=== PATIENT | female | born 1985 | race American Indian/Alaskan Native ===

== ENCOUNTER 2017-03-26 04:17 | Emergency (ER) | payer SELFPAY ==
[2017-03-26 05:38] LABS: Mean Corpuscular Hemoglobin 29 pg (28-32); Mean Corpuscular Volume 89 fl (79-97); White Blood Count 5.6 K/mm3 (4.5-11.0)
[2017-03-26 05:39] LABS: Basophils % (Auto) 1.1 % (0.0-1.8); Eosinophils % (Auto) 3.8 % (0.0-4.3); Mean Corpuscular HGB Conc 32 % (30-34); Platelet Count 223 K/mm3 (140-440); Red Cell Distribution Width 14.5 % (13.2-15.2)
[2017-03-26 07:14] LABS: Bilirubin,Urine NEG (Negative); Blood,Urine MOD (Negative); Ketones,Urine NEG (Negative); Leukocyte Esterase,Urine NEG (Negative); Mucus,Urine FEW /HPF; Nitrite,Urine NEG (Negative); Protein,Urine <15 mg/dL mg/dL (Negative); Urobilinogen,Urine < 2.0 mg/dL (<2.0)
--- NOTE | 2017-03-26 07:56 | Ultrasound Report ---
FINAL REPORT PROCEDURE: US OB TRANSVAGINAL TECHNIQUE: Real-time transvaginal sonography of the uterus, placenta, amniotic fluid, adnexa, and fetus was performed with image documentation. Measurements were obtained to determine age/size. M-mode Doppler was used to document heartbeat. CPT 30653 HISTORY: vaginal bleed, abd pn COMPARISON: No prior studies are available for comparison. FINDINGS: CRL: 3mm, which corresponds to a gestational age of: 5weeks, 6 days. Yolk Sac: Normal. Embryonic Cardiac Activity: None detected Gestational Sac: Gestational sac is irregular in configuration. There is debris in the sac. Right Ovary: There is a 12 millimeter complex cyst. Left Ovary: Normal. Estimated delivery date: 11/06/2017 IMPRESSION: 1. Intrauterine at 5 weeks 6 days 2. The gestational sac is irregular in configuration and contains debris. There is no cardiac activity. Findings suggest intrauterine demise.
--- NOTE | 2017-03-26 07:57 | Ultrasound Report ---
FINAL REPORT PROCEDURE: US OB TRANSABDOMINAL TECHNIQUE: Transabdominal sonography of the uterus, placenta, amniotic fluid, adnexa, and fetus was performed with image documentation. Measurements were obtained to determine age/size. M-mode Doppler was used to document heartbeat. HISTORY: vaginal bleed, abd pn COMPARISON: No prior studies are available for comparison. FINDINGS: CRL: 3mm, which corresponds to a gestational age of: 5weeks, 6 days. Yolk Sac: Normal. Embryonic Cardiac Activity: None detected Gestational Sac: Gestational sac is irregular in configuration. There is debris in the sac. Right Ovary: There is a 12 millimeter complex cyst. Left Ovary: Normal. Estimated delivery date: 11/06/2017 IMPRESSION: 1. Intrauterine at 5 weeks 6 days 2. The gestational sac is irregular in configuration and contains debris. There is no cardiac activity. Findings suggest intrauterine demise.
[2017-03-26] MEDS ORDERED: TYLENOL PO ONE (08:55)
--- NOTE | 2017-03-26 08:57 | Emergency Department Report ---
HPI - General Chief Complaint: Vaginal Bleeding Time Seen by Provider: 03/26/17 08:36 - HPI HPI: This is a 32-year-old Afro-Serbian female presents to the emergency department from home with complaint of moderate vaginal bleeding and contraction-like abdominal cramping pain since yesterday. The patient believes herself to be about 5 weeks as she had a last special cycle at the end of January. She did a home test that was positive and this was confirmed by a [facility] as well. With this the patient is with 1 previous . She is not taken anything for symptoms prior to presentation. She does not have any PARTS TECHNICIAN. No recent travel or sick contacts at home. She denies any fever, excessive nausea or vomiting, dysuria, vaginal discharge. ED Past Medical Hx - Past Medical History Previous Medical History?: Yes Hx Asthma: Yes - Surgical History Past Surgical History?: No - Social History Smoking Status: Never Smoker Substance Use Type: None - Medications Home Medications: Home Medications Medication Instructions Recorded Confirmed Last Taken Type Albuterol Sulfate [Proventil HFA] 1 - 2 puff IH Q4H PRN 04/14/15 04/14/15 Unknown History Ofloxacin 0.3% [Floxin Otic] 10 drops OT BID #1 bottle 04/14/15 Unknown Rx Penicillin Vk [Veetids TAB] 500 mg PO QID #40 tablet 05/15/15 Unknown Rx traMADol [Ultram 50 MG tab] 50 mg PO Q6HR PRN #30 tablet 05/15/15 Unknown Rx Amoxicillin [Trimox CAP] 500 mg PO Q8H #30 capsule 06/24/15 Unknown Rx Ibuprofen [Motrin 800 MG tab] 800 mg PO Q8HR PRN #30 tablet 08/31/15 Unknown Rx Penicillin Vk [Veetids TAB] 500 mg PO QID #40 tablet 08/31/15 Unknown Rx Chlorhexidine Mouthwash [Peridex] 15 ml MM BID #1 bottle 12/13/15 Unknown Rx Penicillin Vk [Veetids TAB] 250 mg PO QID #10 tablet 12/13/15 Unknown Rx traMADol [Ultram 50 MG tab] 50 mg PO Q6HR PRN #20 tablet 12/13/15 Unknown Rx Vit No.130/Iron/FA 1 each PO QDAY #30 tablet 03/26/17 Unknown Rx [ Tablet] ED Review of Systems ROS: Stated complaint: 12WKS PREG/ABD PAIN/BLEEDING Other details as noted in HPI Comment: All other systems reviewed and negative Constitutional: denies: chills, fever Eyes: denies: eye pain, eye discharge, vision change ENT: denies: ear pain, throat pain Respiratory: denies: cough, shortness of breath, wheezing Cardiovascular: denies: chest pain, palpitations Gastrointestinal: abdominal pain (cramping pain). denies: nausea Genitourinary: other (vaginal bleeding). denies: dysuria, discharge Musculoskeletal: denies: back pain, joint swelling, arthralgia Skin: denies: rash, lesions Neurological: denies: headache, weakness, paresthesias Physical Exam - Physical Exam Vital Signs: Vital Signs 03/26/17 03/26/17 04:18 07:57 Temperature 98.4 F 98.2 F Pulse Rate 53 L 50 L Respiratory 20 18 Rate Blood Pressure 139/100 Blood Pressure 140/90 [Right] O2 Sat by Pulse 100 100 Oximetry Physical Exam: GENERAL: The patient is well-developed well-nourished. HEENT: Normocephalic. Atraumatic. Extraocular motions are intact. Patient has moist mucous membranes. Pupils equal reactive to light bilaterally. NECK: Supple. Trachea is midline. CHEST/LUNGS: Clear to auscultation. There is no respiratory distress noted. HEART/CARDIOVASCULAR: Regular. There is no tachycardia. There is no gallop rub or murmur. ABDOMEN: Abdomen is soft. No tenderness to palpation. No guarding rebound tenderness. Patient has normal bowel sounds. There is no abdominal distention. SKIN: There is no rash. There is no edema. There is no diaphoresis. NEURO: The patient is awake, alert, and oriented. The patient is cooperative. The patient has no focal neurologic deficits. The patient has normal speech. MUSCULOSKELETAL: There is no tenderness or deformity. There is no limitation range of motion. There is no evidence of acute injury. ED Course Vital Signs 03/26/17 03/26/17 04:18 07:57 Temperature 98.4 F 98.2 F Pulse Rate 53 L 50 L Respiratory 20 18 Rate Blood Pressure 139/100 Blood Pressure 140/90 [Right] O2 Sat by Pulse 100 100 Oximetry - Consultations Consultation #1: I spoke with Monie, the radio board operator for [facility] service, and we discussed the patient's presentation, vaginal bleeding, ultrasound concerning for demise. She agrees that the best course of action is to have the patient repeat the hormone level and possibly the ultrasound and 3-4 days. She does not recommend a pelvic examination at this time. She recommends pelvic rest and miscarriage precautions. 03/26/17 08:57 ED Medical Decision Making - Lab Data Result diagrams: 03/26/17 04:48 - Radiology Data Radiology results: report reviewed Transvaginal/OB ultrasound shows an intrauterine at 5 weeks and 6 days. The gestational sac is irregular in configuration and contains debris. There is no cardiac activity. Findings suggest intrauterine demise. - Medical Decision Making 32-year-old female presents the emergency department with about 24 hours of vaginal bleeding and abdominal cramping pains. Beta hCG is about 19,000. Transvaginal ultrasound shows concerns for intrauterine demise. However we cannot definitively say that this is in fact demise and/or miscarriage. Patient will be started on vitamins. Spoke with the my PARTS TECHNICIAN radio board operator who suggests repeat hormone level an ultrasound in a few days. If the hormone level is increasing and the ultrasound shows progression, this may be an atypical early viable intrauterine . If the hormone level is decreasing and the ultrasound shows regression, then this is most likely a miscarriage and/or demise. Spoke with the patient about pelvic precautions and miscarriage precautions. She will return to the ER with any worsening of her bleeding, abdominal pain or any acute distress. Patient understands and agrees the plan. - Differential Diagnosis , threatened miscarriage, spontaneous miscarriage, fibroids Critical Care Time: No Critical care attestation.: If time is entered above; I have spent that time in minutes in the direct care of this critically ill patient, excluding procedure time. ED Disposition Clinical Impression: Threatened miscarriage Disposition: DISCHARGED TO HOME OR SELFCARE Is pt being admited?: No Condition: Stable Instructions: Threatened Miscarriage (ED) Additional Instructions: Please follow-up with any of the PARTS TECHNICIAN services in 3-4 days for a repeat hormone level and possibly a repeat ultrasound. If the hormone level is increasing and the ultrasound shows progression of the , then this may just be an early intrauterine . If the hormone level is decreasing and the ultrasound shows regression, then this is a threatened miscarriage. You should return to the emergency department sooner with any worsening of the vaginal bleeding or intractable abdominal discomfort or any acute distress. You need to practice pelvic rest until cleared by an PARTS TECHNICIAN. This means no sexual intercourse and nothing should be inserted into the vagina. Try to limit any exertion. Prescriptions: Vit No.130/Iron/FA [ Tablet] 1 each PO QDAY #30 tablet Referrals: [facility] [Provider Group] - 3-5 Days [facility] [Provider Group] - 3-5 Days [facility] [Provider Group] - 3-5 Days Time of Disposition: 09:02
[2017-03-26 09:35] VITALS: BP 138/84
== END 2017-03-26 09:36 | disposition home or self-care (01) ==
LOC: ED 04:17
DX: O20.0 Threatened abortion (principal); O99.511 Diseases of the respiratory system complicating pregnancy, first trimester; Z3A.01 Less than 8 weeks gestation of pregnancy
CPT/HCPCS: 36415; 76801; 76817; 81001; 84702; 85025; 86850; 86900; 86901

== ENCOUNTER 2017-03-29 16:01 | Emergency (ER) | payer SELFPAY ==
[2017-03-29 17:27] LABS: Basophils % (Auto) 1.3 % (0.0-1.8); Eosinophils % (Auto) 2.7 % (0.0-4.3); Hemoglobin 10.8 gm/dl (10.1-14.3); Mean Corpuscular HGB Conc 32 % (30-34); Mean Corpuscular Hemoglobin 28 pg (28-32); Mean Corpuscular Volume 89 fl (79-97); Platelet Count 236 K/mm3 (140-440); Red Blood Count 3.84 M/mm3 (3.65-5.03); Red Cell Distribution Width 15.3 % (13.2-15.2); White Blood Count 3.8 K/mm3 (4.5-11.0)
[2017-03-29 17:44] LABS: Bilirubin,Urine NEG (Negative); Blood,Urine MOD (Negative); Ketones,Urine NEG (Negative); Leukocyte Esterase,Urine NEG (Negative); Mucus,Urine 3+ /HPF; Nitrite,Urine NEG (Negative); Protein,Urine <15 mg/dL mg/dL (Negative)
[2017-03-30 06:07] VITALS: BP 128/85
[2017-03-30] MEDS ORDERED: PERCOCET 5/325 PO ONE (06:19)
--- NOTE | 2017-03-30 06:22 | Emergency Department Report ---
HPI - General Chief Complaint: Vaginal Bleeding Time Seen by Provider: 03/30/17 06:07 - HPI HPI: This is a 32-year-old Afro-Lebanese female presents to the emergency department with complaint of continued and worsening vaginal bleeding and pelvic cramping/ pain. The patient was here last , 4-5 days ago, was found to be with concern for demise based on the irregular appearance of the ultrasound. She is currently . The patient was given instructions to follow-up with a TOP EDGE BEVELER but return to the ER if symptoms worsened or she could not get in to see an TOP EDGE BEVELER in a reasonable amount of time. She says that the bleeding is increased includes clots but she has not seen any obvious tissue. She has been using Tylenol and vitamins without any relief. She says she was able to make an appointment for this coming Thursday for [facility] but she could not wait that long. ED Past Medical Hx - Past Medical History Previous Medical History?: Yes Hx Asthma: Yes - Surgical History Past Surgical History?: No - Social History Smoking Status: Never Smoker Substance Use Type: None - Medications Home Medications: Home Medications Medication Instructions Recorded Confirmed Last Taken Type Albuterol Sulfate [Proventil HFA] 1 - 2 puff IH Q4H PRN 04/14/15 04/14/15 History Ibuprofen [Motrin 800 MG tab] 800 mg PO Q8HR PRN #30 tablet 08/31/15 03/29/17 Rx Vit No.130/Iron/FA 1 each PO QDAY #30 tablet 03/26/17 03/29/17 Rx [ Tablet] HYDROcodone/APAP 5-325 [[place] 1 each PO Q6HR PRN #10 tablet 03/30/17 Unknown Rx 5/325] ED Review of Systems ROS: Stated complaint: 6 WKS W/BLEEDING CRAMPS CLOTS Other details as noted in HPI Comment: All other systems reviewed and negative Constitutional: denies: chills, fever Eyes: denies: eye pain, eye discharge, vision change ENT: denies: ear pain, throat pain Respiratory: denies: cough, shortness of breath, wheezing Cardiovascular: denies: chest pain, palpitations Gastrointestinal: abdominal pain. denies: nausea, vomiting Genitourinary: other (vaginal bleeding). denies: urgency, dysuria, discharge Musculoskeletal: denies: back pain, joint swelling, arthralgia Skin: denies: rash, lesions Neurological: denies: headache, weakness, paresthesias Physical Exam - Physical Exam Vital Signs: Vital Signs 03/29/17 03/30/17 03/30/17 16:46 05:41 05:49 Temperature 98.9 F Pulse Rate 85 63 63 Respiratory 16 13 13 Rate Blood Pressure 133/88 Blood Pressure 135/89 [Right] O2 Sat by Pulse 100 100 100 Oximetry 03/30/17 03/30/17 05:51 06:00 Temperature Pulse Rate 67 64 Respiratory 11 L 17 Rate Blood Pressure 131/89 128/85 Blood Pressure [Right] O2 Sat by Pulse 100 100 Oximetry Physical Exam: GENERAL: The patient is well-developed well-nourished. HEENT: Normocephalic. Atraumatic. Extraocular motions are intact. Patient has moist mucous membranes. Pupils equal reactive to light bilaterally. NECK: Supple. Trachea is midline. CHEST/LUNGS: Clear to auscultation. There is no respiratory distress noted. HEART/CARDIOVASCULAR: Regular. There is no tachycardia. There is no gallop rub or murmur. ABDOMEN: Abdomen is soft, nontender. Patient has normal bowel sounds. There is no abdominal distention. SKIN: There is no rash. There is no edema. There is no diaphoresis. NEURO: The patient is awake, alert, and oriented. The patient is cooperative. The patient has no focal neurologic deficits. The patient has normal speech. MUSCULOSKELETAL: There is no tenderness or deformity. There is no limitation range of motion. There is no evidence of acute injury. : There is a moderate amount of frothy maroon blood seen in the vaginal vault. Cervical os appears closed. ED Course Vital Signs 03/29/17 03/30/17 03/30/17 16:46 05:41 05:49 Temperature 98.9 F Pulse Rate 85 63 63 Respiratory 16 13 13 Rate Blood Pressure 133/88 Blood Pressure 135/89 [Right] O2 Sat by Pulse 100 100 100 Oximetry 03/30/17 03/30/17 05:51 06:00 Temperature Pulse Rate 67 64 Respiratory 11 L 17 Rate Blood Pressure 131/89 128/85 Blood Pressure [Right] O2 Sat by Pulse 100 100 Oximetry - Consultations Consultation #1: I spoke with the cone treater at [facility] BEVEL[facility], Veronica, who says that the patient's pain should be controlled but then they are happy to move up her appointment and see her either today or tomorrow for possible Cytotec and further evaluation of her miscarriage and/or demise. 03/30/17 07:25 ED Medical Decision Making - Lab Data Result diagrams: 03/29/17 16:56 - Medical Decision Making 32-year-old female presents to the emergency department as a follow-up from last week in which there was suspicion for demise. However at that time she had a very strong beta hCG of about 20,000 and it was only 1 snapshot of what was going on and could not definitively be diagnosed. Since the symptoms worsen she came in to be seen today and was found to have a beta-hCG of about 6500. This does appear consistent with demise and impending or partial miscarriage. Pelvic exam was done and there was no visible products of retained conception but there was some bleeding seen. Spoke to the TOP EDGE BEVELER service who recommends pain control and will move up the patient's appointment from Thursday to either today or tomorrow for further evaluation. Patient was given something for discomfort and is feeling improved. Vital signs stable throughout her ED course. Patient understands and agrees to plan. - Differential Diagnosis , threatened miscarriage, spontaneous miscarriage, fibroids Critical Care Time: No Critical care attestation.: If time is entered above; I have spent that time in minutes in the direct care of this critically ill patient, excluding procedure time. ED Disposition Clinical Impression: demise Disposition: DISCHARGED TO HOME OR SELFCARE Is pt being admited?: No Condition: Stable Instructions: Intrauterine Demise (ED) Additional Instructions: Please call [facility] today to get her appointment moved up to either today or tomorrow. Return to the emergency department with any acute distress. You've been prescribed a medication that is sedating. Therefore this medication cannot be mixed with alcohol, or taken prior to driving, working, or being responsible for children. Prescriptions: HYDROcodone/APAP 5-325 [[place] 5/325] 1 each PO Q6HR PRN #10 tablet PRN Reason: Pain Referrals: [facility] [Provider Group] - 3-5 Days Time of Disposition: 07:28
== END 2017-03-30 07:50 | disposition home or self-care (01) ==
LOC: ED 16:01
DX: O36.4XX0 Maternal care for intrauterine death, not applicable or unspecified (principal); J45.909 Unspecified asthma, uncomplicated
CPT/HCPCS: 36415; 81001; 84702; 85025; 86850; 86900; 86901

== ENCOUNTER 2017-12-07 21:51 | Emergency (ER) | payer MEDICAID ==
[2017-12-07 22:35] VITALS: BP 126/78
[2017-12-08] MEDS ORDERED: TORADOL IM ONE (02:45)
--- NOTE | 2017-12-08 02:52 | Emergency Department Report ---
ED ENT HPI - General Chief complaint: Dental/Oral Stated complaint: TOOTH PAIN Time Seen by Provider: 12/08/17 02:22 Source: patient Mode of arrival: Ambulatory Limitations: No Limitations - History of Present Illness Initial comments: This is a 32-year-old female nontoxic, well nourished in appearance, no acute signs of distress presents to the ED with c/o of toothache radiating to her left ear. Patient finished she had a business appointment 2 weeks ago and was told that she needs a root canal and cleaning but the patient stated due to insurance she reschedule that for December 26. Patient denies any facial swelling, decreased hearing, mastoid tenderness, ear canal discharge, fever, chills, nausea, vomiting, chest pain, shortness of breath, numbness or tingling. Patient denies any drug allergies. Past medical history includes asthma. MD complaint: tooth pain -: week(s) (3) Location: tooth # (19) 1 - toothache Severity: mild Severity scale (0 -10): 8 Quality: aching Consistency: constant Improves with: none Worsens with: none Context- Dental: history of dental caries, poor dental care Associated Symptoms: gum swelling, toothache. denies: fever, cough, pain with swallowing, sore throat, tinnitus, hearing loss, discharge from ear, rhinorrhea - Related Data Home Medications Medication Instructions Recorded Confirmed Last Taken Albuterol Sulfate [Proventil HFA] 1 - 2 puff IH Q4H PRN 04/14/15 04/14/15 Previous Rx's Medication Instructions Recorded Last Taken Type Ibuprofen [Motrin 800 MG tab] 800 mg PO Q8HR PRN #30 tablet 08/31/15 03/29/17 Rx Vit No.130/Iron/Folic 1 each PO QDAY #30 tablet 03/26/17 03/29/17 Rx [ Tablet] HYDROcodone/APAP 5-325 [[place] 1 each PO Q6HR PRN #10 tablet 03/30/17 Unknown Rx 5/325] Amoxicillin/K Clav Tab [Augmentin 1 tab PO Q12HR #20 tab 12/08/17 Unknown Rx 875 mg] Chlorhexidine Mouthwash [Peridex] 15 ml MM BID #1 bottle 12/08/17 Unknown Rx traMADol [Ultram] 50 mg PO Q6HR PRN #12 tablet 12/08/17 Unknown Rx Allergies Allergy/AdvReac Type Severity Reaction Status Date / Time No Known Allergies Allergy Verified 12/13/15 14:27 ED Dental HPI - General Chief complaint: Dental/Oral Stated complaint: TOOTH PAIN Time Seen by Provider: 12/08/17 02:22 Source: patient Mode of arrival: Ambulatory Limitations: No Limitations - Related Data Home Medications Medication Instructions Recorded Confirmed Last Taken Albuterol Sulfate [Proventil HFA] 1 - 2 puff IH Q4H PRN 04/14/15 04/14/15 Previous Rx's Medication Instructions Recorded Last Taken Type Ibuprofen [Motrin 800 MG tab] 800 mg PO Q8HR PRN #30 tablet 08/31/15 03/29/17 Rx Vit No.130/Iron/Folic 1 each PO QDAY #30 tablet 03/26/17 03/29/17 Rx [ Tablet] HYDROcodone/APAP 5-325 [[place] 1 each PO Q6HR PRN #10 tablet 03/30/17 Unknown Rx 5/325] Amoxicillin/K Clav Tab [Augmentin 1 tab PO Q12HR #20 tab 12/08/17 Unknown Rx 875 mg] Chlorhexidine Mouthwash [Peridex] 15 ml MM BID #1 bottle 12/08/17 Unknown Rx traMADol [Ultram] 50 mg PO Q6HR PRN #12 tablet 12/08/17 Unknown Rx Allergies Allergy/AdvReac Type Severity Reaction Status Date / Time No Known Allergies Allergy Verified 12/13/15 14:27 ED Review of Systems ROS: Stated complaint: TOOTH PAIN Other details as noted in HPI Constitutional: denies: chills, fever Eyes: denies: eye pain, eye discharge, vision change ENT: dental pain. denies: ear pain, throat pain Respiratory: denies: cough, shortness of breath, wheezing Cardiovascular: denies: chest pain, palpitations Endocrine: no symptoms reported Gastrointestinal: denies: abdominal pain, nausea, diarrhea Genitourinary: denies: urgency, dysuria, discharge Musculoskeletal: denies: back pain, joint swelling, arthralgia Skin: denies: rash, lesions Neurological: denies: headache, weakness, paresthesias Psychiatric: denies: anxiety, depression Hematological/Lymphatic: denies: easy bleeding, easy bruising ED Past Medical Hx - Past Medical History Hx Asthma: Yes - Surgical History Additional Surgical History: - Social History Smoking Status: Current Every Day Smoker Substance Use Type: None - Medications Home Medications: Home Medications Medication Instructions Recorded Confirmed Last Taken Type Albuterol Sulfate [Proventil HFA] 1 - 2 puff IH Q4H PRN 04/14/15 04/14/15 History Ibuprofen [Motrin 800 MG tab] 800 mg PO Q8HR PRN #30 tablet 08/31/15 03/29/17 Rx Vit No.130/Iron/Folic 1 each PO QDAY #30 tablet 03/26/17 03/29/17 Rx [ Tablet] HYDROcodone/APAP 5-325 [[place] 1 each PO Q6HR PRN #10 tablet 03/30/17 Unknown Rx 5/325] Amoxicillin/K Clav Tab [Augmentin 1 tab PO Q12HR #20 tab 12/08/17 Unknown Rx 875 mg] Chlorhexidine Mouthwash [Peridex] 15 ml MM BID #1 bottle 12/08/17 Unknown Rx traMADol [Ultram] 50 mg PO Q6HR PRN #12 tablet 12/08/17 Unknown Rx ED Physical Exam - General Limitations: No Limitations General appearance: alert, in no apparent distress - Head Head exam: Present: atraumatic, normocephalic - Eye Eye exam: Present: normal appearance - ENT ENT exam: Present: mucous membranes moist, TM's normal bilaterally, normal external ear exam - Expanded ENT Exam Expanded Ear exam: Present: normal external inspection Mouth exam: Present: normal external inspection, tongue normal. Absent: drooling, trismus, muffled voice, tongue elevation, laceration Teeth exam: Present: dental caries, fractured tooth # (19), dental tenderness # (19), gingival enlargement, other (No facial swelling. ) 1 - Fractured, Dental Tenderness Throat exam: Positive: normal inspection, other (Uvula midline. No abscess or swelling noted. ). Negative: tonsillar erythema, tonsillomegaly, tonsillar exudate, R peritonsillar mass, L peritonsillar mass - Neck Neck exam: Present: normal inspection, full ROM. Absent: tenderness, meningismus, lymphadenopathy, thyromegaly - Respiratory Respiratory exam: Present: normal lung sounds bilaterally. Absent: respiratory distress - Cardiovascular Cardiovascular Exam: Present: regular rate, normal rhythm. Absent: systolic murmur, diastolic murmur, rubs, gallop - GI/Abdominal GI/Abdominal exam: Present: soft, normal bowel sounds - Extremities Exam Extremities exam: Present: normal inspection - Back Exam Back exam: Present: normal inspection - Neurological Exam Neurological exam: Present: alert, oriented X3 - Psychiatric Psychiatric exam: Present: normal affect, normal mood - Skin Skin exam: Present: warm, dry, intact, normal color. Absent: rash ED Course Vital Signs 12/07/17 22:30 Temperature 99.1 F Pulse Rate 72 Respiratory 16 Rate Blood Pressure 126/78 O2 Sat by Pulse 100 Oximetry - Reevaluation(s) Reevaluation #1: 12/08/17 02:52 Patient is speaking in full sentences with no signs of distress noted. Critical care attestation.: If time is entered above; I have spent that time in minutes in the direct care of this critically ill patient, excluding procedure time. ED Disposition Clinical Impression: Dental caries, Toothache, Gingivitis Disposition: DC-01 TO HOME OR SELFCARE Is pt being admited?: No Does the pt Need Aspirin: No Condition: Stable Instructions: Dental Caries (ED), Gingivitis (ED), Tramadol (By mouth), Amoxicillin/Clavulanate Potassium (By mouth) Additional Instructions: Follow-up with a dentist in 3-5 days or if symptoms worsen and continue return to emergency room as soon as possible. Do not operate any machinery while taking Ultram due to drowsiness. Prescriptions: Amoxicillin/K Clav Tab [Augmentin 875 mg] 1 tab PO Q12HR #20 tab Chlorhexidine Mouthwash [Peridex] 15 ml MM BID #1 bottle traMADol [Ultram] 50 mg PO Q6HR PRN #12 tablet PRN Reason: Pain Referrals: PRIMARY CARE,MD [Primary Care Provider] - 3-5 Days GOODJOIN,EDIE B, MD [Staff Physician] - 3-5 Days [facility] [Outside] - 3-5 Days Forms: Work/School Release Form(ED)
== END 2017-12-08 03:05 | disposition home or self-care (01) ==
LOC: ED 21:51
DX: K02.9 Dental caries, unspecified (principal); K05.10 Chronic gingivitis, plaque induced; J45.909 Unspecified asthma, uncomplicated; F17.200 Nicotine dependence, unspecified, uncomplicated
CPT/HCPCS: 96372; 99282; J1885

== ENCOUNTER 2018-05-24 16:37 | Outpatient (CLI) | payer MEDICAID ==
[2018-05-24] MEDS ORDERED: LACTATED RINGERS 500 ML IV ONE (16:43)
[2018-05-24 16:57] VITALS: BP 107/55
== END 2018-05-24 17:35 | disposition home or self-care (01) ==
LOC: TRG 16:37
PROVIDERS: ATTEND Obstetrics & Gynecology
DX: O47.02 False labor before 37 completed weeks of gestation, second trimester (principal); Z3A.27 27 weeks gestation of pregnancy
CPT/HCPCS: 59025

== ENCOUNTER 2018-07-29 18:44 | Inpatient (IN) | payer MEDICAID ==
--- NOTE | 2018-07-29 19:06 | History and Physical Report ---
History of Present Illness Date of examination: 07/29/18 Date of admission: 07/29/18 18:44 Chief [place] [facility] [place]oh[place] History of present illness: 33yo at 36 5/7wks GIDEON 08/21/18 presents for repeat csection due to oligohydramnios (4.85). She reports good movement, no loss of fluid or vaginal bleeding. She was seen by APADr. Kingsley today and delivery was recommended. She is a late to care patient at 26 weeks gestation. Her has been complicated by Anemia (Hgb 8.8 05/19/2018) for which she is taking iron supplements, trichomoniasis with treatment and positive test of cure, GBS positive, HSV2 and rubella non-immune. Her last meal was at 1230pm. 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 - Obstetrical History Expected Date of Delivery: 08/21/18 Actual Gestation: 36 Week(s) 5 Day(s) : 8 Para: 6 Hx # Term Pregnancies: 5 Number of Pregnancies: 1 Number of Living Children: 6 Medications and Allergies Allergies Allergy/AdvReac Type Severity Reaction Status Date / Time No Known Allergies Allergy Verified 12/13/15 14:27 Home Medications Medication Instructions Recorded Confirmed Last Taken Type Albuterol Sulfate [Proventil HFA] 1 - 2 puff IH Q4H PRN 04/14/15 05/24/18 History Vit No.130/Iron/Folic 1 each PO QDAY #30 tablet 03/26/17 05/24/18 1 Day Ago Rx [ Tablet] ~05/23/18 - Obstetrical FHR: auscultation normal Results All other labs normal. Assessment and Plan - Patient Problems (1) 36 weeks gestation of Current Visit: Yes Status: Acute Plan to address problem: 1. Routine labs. Check for anemia, if severe will transfuse. 2. IVF 3. SCDs for DVT prophylaxis. 4. Ancef for infection prophylaxis. 5. Risks including but not limited to bleeding, infection, injury to surrounding organs/mother and or , need for blood transfusion, need for hysterectomy or risk of OR, CVA were discussed and informed consent signed. (2) Oligohydramnios Current Visit: Yes Status: Acute Plan to address problem: Indication for delivery (3) Previous section Current Visit: Yes Status: Acute (4) Trichomoniasis Current Visit: Yes Status: Acute Plan to address problem: Treat with Flagyl IV (5) HSV-2 seropositive Current Visit: Yes Status: Acute (6) Positive GBS test Current Visit: Yes Status: Acute
[2018-07-29] MEDS ORDERED: BICITRA PO ONE (19:14)
[2018-07-29] MEDS ORDERED: PEPCID IV ONE (19:14)
[2018-07-29] MEDS ORDERED: REGLAN IV ONE (19:14)
[2018-07-29] MEDS ORDERED: PITOCin/NS 20 UNIT/1000ML DRIP 20 UNITS/1,000 ML BAG IV SCH (20:00)
[2018-07-29] MEDS ORDERED: FLAGYL 500 MG/100 ML 500 MG/100 ML BAG IV ONE (20:00)
[2018-07-29] MEDS: LACTATED RINGERS 1,000 ML IV SCH ×2 (20:00→20:30)
[2018-07-29 20:36] LABS: Basophils % (Auto) 0.4 % (0.0-1.8); Eosinophils # (Auto) 0.1 K/mm3 (0.0-0.4); Eosinophils % (Auto) 1.8 % (0.0-4.3); Hematocrit 31.2 % (30.3-42.9); Hemoglobin 10.1 gm/dl (10.1-14.3); Lymphocytes # (Auto) 1.4 K/mm3 (1.2-5.4); Lymphocytes % (Auto) 21.8 % (13.4-35.0); Mean Corpuscular HGB Conc 33 % (30-34); Mean Corpuscular Hemoglobin 29 pg (28-32); Mean Corpuscular Volume 89 fl (79-97); Monocytes # (Auto) 0.7 K/mm3 (0.0-0.8); Monocytes % (Auto) 10.5 % (0.0-7.3); Platelet Count 221 K/mm3 (140-440); Red Cell Distribution Width 17.9 % (13.2-15.2)
[2018-07-29] MEDS ORDERED: ANCEF/STERILE WATER 2 GM/20 ML 2 GM/20 ML SYRINGE IV NR (21:00)
[2018-07-29] MEDS ORDERED: MORPHINE ONE (21:37)
[2018-07-29] MEDS ORDERED: WATER FOR IRRIG STERILE IR ONE (21:40)
[2018-07-29] MEDS ORDERED: NACL 0.9% IR ONE (21:40)
[2018-07-29] MEDS ORDERED: XYLOCAINE MPF 2% ONE ×5 (22:22)
[2018-07-29] MEDS ORDERED: TORADOL ONE (22:22)
[2018-07-29] MEDS ORDERED: SODIUM CHLORIDE FLUSH SYRINGE 10 ML IV NR (23:45)
--- NOTE | 2018-07-29 23:48 | Anesthesia Consultation ---
Anesthesia Consult and Med Hx Date of service: 07/29/18 - Airway Anesthetic Teeth Evaluation: Good ROM Head & Neck: Adequate Mental/Hyoid Distance: Adequate Mallampati Class: Class II Intubation Access Assessment: Good - Pulmonary Exam CTA: Yes - Cardiac Exam Cardiac Exam: No Murmur - Pre-Operative Health Status ASA Pre-Surgery Classification: ASA2 Proposed Anesthetic Plan: Epidural - Pulmonary Hx Asthma: Yes (albuteral prn) - Cardiovascular System Hx Hypertension: No - Central Nervous System Hx Seizures: No Hx Psychiatric Problems: No - Endocrine Hx Renal Disease: No Hx Hypothyroidism: No Hx Hyperthyroidism: No - Hematic Hx Anemia: Yes Hx Sickle Cell Disease: No - Other Systems Hx Alcohol Use: No
[2018-07-29] MEDS ORDERED: NARCAN 0.4 MG/1 ML IV PRN (23:49)
[2018-07-29] MEDS ORDERED: ZOFRAN IV PRN (23:49)
[2018-07-29] MEDS ORDERED: PHENERGAN PO PRN (23:49)
[2018-07-29] MEDS ORDERED: DILAUDID IV PRN (23:49)
[2018-07-29] MEDS ORDERED: PHENERGAN PR PRN (23:49)
--- NOTE | 2018-07-29 23:49 | Post Anesthesia Evaluation ---
- Post Anesthesia Evaluation Patient Participated: Yes Airway Patent: Yes Stable Respiratory Function: Yes Nausea/Vomiting: No Temp > 96.8F: Yes Pain Manageable: Yes Adequeate Hydration: Yes Anesthesia Complications: No
--- NOTE | 2018-07-30 00:23 | Operative Report ---
Operative Report Operative Report: PREOP Diagnosis 1. 36 5/7 weeks gestation 2. Previous section 3. Oligohydramnois Postop Diagnosis 1. 36 5/7 weeks gestation 2. Previous section 3. Oligohydramnois Procedure: Repeat low-transverse section Findings 1. Viable male infant in the vertex position, weighing 5lb 1 oz, 2310g APGARS 8 at 1 min, 9 at 5 min 2. Normal uterus bilateral ovaries and tubes Surgeon 1. Evie Brown MD Anesthesia: 1. Epidural I/O: EBL: 900ml UOP: 150ml IVF 2000ml LR Specimens removed: 1. Placenta - sent to pathology Complications: none Disposition: Patient taken to recovery room in stable condition INDICATIONS: The patient is a 33yo at 36 5/7weeks that [place] [facility] [place]oh[place]. heart tones were confirmed in the OR . The patient was consented and the risks including but not limited to bleeding, infections, injury to surrounding organs, potential injury to mother/ were discussed. All questions were answered and informed consent signed. PROCEDURE: The patient was taken to the OR in stable condition. Adequate anesthesia was achieved with epidural anesthesia. A sharma catheter was placed. She wore SCDs for DVT prophylaxis. And received Ancef for infection prophylaxis. The patient was prepped and draped in the usual fashion and an additional time out was done. A Pfannestiel incision was made over the previous uterine scar. The fascia was incised and the incision extended laterally. The superior and inferior aspect of the rectus muscle was dissected off of the fascia. Entry into the peritoneum was achieved. The incision was extended caudal and cranially. A bladder blade was placed. A low-transverse incision made made in the uterus and extended laterally. The head was brought to the hysterotomy and mouth bulb suctioned. The body was delivered. 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 Cord blood and cord gasses were collected. The placenta was delivered intact. 20 units of IV Pitocin were added to LR fluids. The uterus was cleaned of all clots. The uterus was repaired with 0-Vicryl in a running, locked stitche x 2 and an imbricating layer of 2-0 Vicryl was used. Tisseal fibrin sealant was applied to the hysterotomy. The rectus muscle was re-approximated with 2- 0Vicryl. Fascia was closed with 0 Vicryl. Subcutaneous layer reapproximated with 2-0 Vicryl. Skin closed with 4-0 Vicryl. The patient tolerated the procedure well. All counts were correct x 3. Urine was noted to be clear at close of case. I was present and scrubbed for the entire procedure. The patient was taken to the recovery room in stable condition.
[2018-07-30] MEDS ORDERED: DILAUDID IV ONE (02:54)
[2018-07-30] MEDS ORDERED: FLAGYL 500 MG/100 ML 500 MG/100 ML BAG IV ONE (03:00)
[2018-07-30] MEDS ORDERED: MILK OF MAGNESIA PO PRN (03:27)
[2018-07-30] MEDS ORDERED: NARCAN 0.4 MG/1 ML IV PRN (03:27)
[2018-07-30] MEDS ORDERED: PERCOCET 5/325 PO PRN (03:27)
[2018-07-30] MEDS ORDERED: TUCKS PAD TP PRN (03:27)
[2018-07-30] MEDS ORDERED: TYLENOL PO PRN (03:27)
[2018-07-30] MEDS ORDERED: LANSINOH TP PRN (03:27)
[2018-07-30] MEDS: MORPHINE IV PRN ×2 (06:51→20:18)
[2018-07-30] MEDS ORDERED: TORADOL IV PRN (08:30)
[2018-07-30] MEDS ORDERED: FLAGYL PO ONE (10:00)
--- NOTE | 2018-07-30 10:10 | Progress Note ---
Assessment and Plan (1) Repeat Section Current Visit: Yes Status: Acute Plan to address problem: 1. Routine Post-op/ care 2. Anemia: asymptomatic. H/H pending 3. Stable 4. Pain well controlled 5. Abdominal Binder ordered 6. Encouraged ambulation in room today 7. Anticipate discharge in 24-48 hrs (2) Oligohydramnios Current Visit: Yes Status: Acute Plan to address problem: Indication for delivery (3) Previous section Current Visit: Yes Status: Acute (4) Trichomoniasis Current Visit: Yes Status: Acute Plan to address problem: Treated with Flagyl IV (5) HSV-2 seropositive Current Visit: Yes Status: Acute (6) Positive GBS test Current Visit: Yes Status: Acute Subjective - Subjective Date of service: 07/30/18 Principal diagnosis: POD#1 s/p Repeat c/s Patient reports: appetite normal, voiding normally, pain well controlled, flatus , ambulating normally, no bowel movement [place]: doing well, bottle feeding Objective - Vital Signs Latest vital signs: Vital Signs Temp Pulse Resp BP BP Pulse Ox 07/30/18 06:51 07/30/18 05:18 98.2 F 65 20 120/79 100 07/30/18 03:33 18 07/30/18 03:03 20 07/30/18 02:25 98.0 F 60 20 121/76 07/30/18 02:20 98.3 F 86 120/70 07/30/18 00:55 98.1 F 58 L 18 129/78 100 07/30/18 00:40 56 L 20 125/78 07/30/18 00:25 58 L 19 129/77 100 07/30/18 00:10 57 L 16 125/80 100 07/29/18 23:55 58 L 15 124/74 100 07/29/18 23:50 55 L 14 119/69 100 07/29/18 23:46 97.7 F 62 11 L 120/77 100 07/29/18 23:21 84 120/83 07/29/18 19:40 98.1 F 63 18 116/60 116/60 Intake and Output 07/29/18 07/30/18 07/30/18 23:59 07:59 15:59 Intake Total 3000 Output Total 300 Balance 2700 Intake: IV 3000 Lactated Ringers 1,000 ml 1000 @ 2250 mls/hr IV PREOP [facility] Rx#:[id number] Output: Urine 300 Uretheral (Cruz) 150 Other: Weight 85.275 kg Estimated Blood Loss 900 - Exam Breasts: Present: normal Cardiovascular: Present: Regular rate, Normal S1, Normal S2, No murmurs Lungs: Present: Clear to auscultation, Normal air movement Abdomen: Present: normal appearance, soft, tenderness (as expected post-op), normal bowel sounds. Absent: distention Vulva: both: normal Uterus: Present: firm, fundal height at umbilicus Extremities: Present: normal Deep Tendon Reflex Grade: Normal +2 Incision: Present: normal, dry, intact, dressed (pressure dressing intact. CDI no drainage) - Labs Labs: Abnormal lab results 07/29/18 Range/Units 20:04 RBC 3.50 L (3.65-5.03) M/mm3 RDW 17.9 H (13.2-15.2) % [place] % (Auto) 10.5 H (0.0-7.3) %
[2018-07-30] MEDS: MYLICON PO PRN ×2 (11:00→21:43)
[2018-07-30] MEDS: PERCOCET 5/325 PO PRN ×2 (15:45→21:43)
[2018-07-30 16:21] LABS: Hematocrit 29.3 % (30.3-42.9); Hemoglobin 9.6 gm/dl (10.1-14.3)
[2018-07-30] MEDS: MOTRIN PO PRN (19:20)
[2018-07-31] MEDS: MOTRIN PO PRN ×4 (03:49→23:04)
[2018-07-31] MEDS: PERCOCET 5/325 PO PRN ×4 (03:50→23:05)
[2018-07-31] MEDS ORDERED: BOOSTRIX IM ONE (06:00)
[2018-07-31] MEDS ORDERED: M-M-R II VACCINE SUB-Q ONE (06:00)
--- NOTE | 2018-07-31 11:17 | Progress Note ---
Assessment and Plan A: /postop day 1 S/P repeat low transverse section. Anemia. P: Iron supplementation; stool softeners. Encouraged ambulation. Subjective - Subjective Date of service: 07/31/18 Principal diagnosis: /postop day 1 S/P repeat section Interval history: /postop day 1 S/P repeat section. Patient is doing well. Patient reports a small amount of lochia. Patient denies clots. She is voiding without difficulty, passing gas, ambulating well, tolerating a regular diet without nausea or vomiting, and had BM today. Patient denies headache, cough, chest pain, shortness of breath, abdominal pain , leg pain, heavy vaginal bleeding, or swelling. Patient reports: appetite normal, voiding normally, pain well controlled, flatus , bowel movement, ambulating normally [place]: doing well Objective - Vital Signs Latest vital signs: Vital Signs Temp Pulse Resp BP BP Pulse Ox 07/31/18 10:03 20 07/31/18 08:55 98.7 F 69 20 112/82 100 07/31/18 08:10 98.2 F 64 20 108/57 07/31/18 04:50 18 07/31/18 04:49 18 07/31/18 03:50 18 07/31/18 03:49 18 07/31/18 00:00 98.1 F 76 18 98/63 07/30/18 22:43 18 07/30/18 21:43 18 07/30/18 20:48 18 07/30/18 20:20 18 07/30/18 20:18 18 07/30/18 19:20 18 07/30/18 16:21 98.4 F 70 18 103/70 97 07/30/18 15:45 20 Intake and Output 07/30/18 07/31/18 07/31/18 23:59 07:59 15:59 Intake Total 240 240 120 Balance 240 240 120 Intake: Oral 240 240 120 Other: Total, Intake Amount 240 240 120 # Voids Void 1 1 1 - Exam Cardiovascular: Present: Regular rate, Normal S1, Normal S2 Lungs: Present: Clear to auscultation Abdomen: Present: normal appearance, soft, normal bowel sounds. Absent: distention, tenderness, guarding, rigidity Uterus: Present: normal, firm. Absent: bogginess, tenderness Extremities: Present: normal, edema (mild bilateral pedal edema). Absent: tenderness Incision: Present: normal, dry, intact, dressed - Labs Labs: Abnormal lab results 07/30/18 Range/Units 14:59 Hgb 9.6 L (10.1-14.3) gm/dl Hct 29.3 L (30.3-42.9) %
[2018-07-31] MEDS: FEOSOL PO SCH (23:04)
[2018-07-31] MEDS: COLACE PO SCH (23:04)
[2018-08-01] MEDS ORDERED: M-M-R II VACCINE SUB-Q ONE ×2 (01:18→06:00)
[2018-08-01] MEDS: PERCOCET 5/325 PO PRN ×4 (05:03→23:31)
[2018-08-01] MEDS: MOTRIN PO PRN ×3 (05:03→17:10)
--- NOTE | 2018-08-01 10:06 | Progress Note ---
Assessment and Plan A: /postop day 2 S/P LTCS. Anemia. P: Supplement with iron. Continue ambulation. Anticipate discharge tomorrow am. Subjective - Subjective Date of service: 08/01/18 Principal diagnosis: /postop day 2 S/P repeat section Interval history: /postop day 2 S/P repeat section. Patient is doing well. Patient reports a small amount of lochia. Patient denies clots. She is voiding without difficulty, passing gas, ambulating well, tolerating a regular diet without nausea or vomiting. Patient denies headache, cough, chest pain, shortness of breath, abdominal pain , leg pain, heavy vaginal bleeding, or swelling. Patient is and bottlefeeding. Patient desires discharge tomorrow am. Patient reports: appetite normal, voiding normally, pain well controlled, flatus , ambulating normally [place]: doing well Objective - Vital Signs Latest vital signs: Vital Signs Temp Pulse Resp BP 08/01/18 06:03 18 08/01/18 05:03 18 08/01/18 00:05 18 08/01/18 00:04 18 08/01/18 00:00 98.2 F 69 20 124/72 07/31/18 23:05 18 07/31/18 23:04 18 07/31/18 16:29 20 07/31/18 10:03 20 Intake and Output 07/31/18 08/01/18 08/01/18 23:59 07:59 15:59 Intake Total 240 120 Balance 240 120 Intake: Oral 240 120 Other: Total, Intake Amount 240 120 # Voids Void 1 1 - Exam Cardiovascular: Present: Regular rate, Normal S1, Normal S2 Lungs: Present: Clear to auscultation Abdomen: Present: normal appearance, soft. Absent: distention, tenderness, guarding, rigidity Uterus: Present: normal, firm, fundal height below umbilicus. Absent: bogginess , tenderness Extremities: Present: normal. Absent: tenderness, edema Incision: Present: normal, dry, intact
[2018-08-01] MEDS: COLACE PO SCH ×2 (11:31→23:37)
[2018-08-01] MEDS: FEOSOL PO SCH ×2 (11:31→23:37)
[2018-08-02] MEDS: MOTRIN PO PRN ×3 (04:03→17:20)
[2018-08-02] MEDS: PERCOCET 5/325 PO PRN ×3 (05:22→17:20)
--- NOTE | 2018-08-02 06:53 | Progress Note ---
Assessment and Plan A: /postop day 3 S/P LTCS. Anemia. P: Discharge patient home today. discharge instructions and warning signs discussed with patient in detail. Advised pt. to continue taking her vitamins and iron supplements at home. Rx for pain medication written for pt. by . Advised pt. to avoid IC, avoid lifting and heavy housework, avoid driving. Advised pt. to follow up in 1 week at [facility] for incision check. Pt. voiced understading of all instructions. Subjective - Subjective Date of service: 08/02/18 Principal diagnosis: /postop day 3 S/P repeat section Interval history: /postop day 3 S/P repeat section. Patient is doing well. She desires discharge. Patient reports a small amount of lochia. Patient denies clots. She is voiding without difficulty, passing gas, ambulating well, tolerating a regular diet without nausea or vomiting. Patient denies headache, cough, chest pain, shortness of breath, abdominal pain , leg pain, heavy vaginal bleeding, or swelling. Patient is and bottlefeeding. Patient reports: appetite normal, voiding normally, pain well controlled, flatus , ambulating normally [place]: doing well Objective - Vital Signs Latest vital signs: Vital Signs Temp Pulse Resp BP BP Pulse Ox 08/02/18 05:22 18 08/02/18 04:03 18 08/02/18 00:05 98.7 F 65 18 120/74 08/01/18 23:31 18 08/01/18 17:10 20 08/01/18 11:32 20 08/01/18 11:31 20 08/01/18 09:07 98.2 F 64 18 115/75 100 Intake and Output 08/01/18 08/01/18 08/02/18 15:59 23:59 07:59 Intake Total 480 240 480 Output Total 2 Balance 478 240 480 Intake: Oral 480 Intake, Free Water 240 480 Output: Urine 2 Void 2 Other: Total, Intake Amount 480 Total, Output Amount 2 # Voids Void 2 2 1 - Exam Cardiovascular: Present: Regular rate, Normal S1, Normal S2 Lungs: Present: Clear to auscultation Abdomen: Present: normal appearance, soft, normal bowel sounds. Absent: distention, tenderness, guarding, rigidity Uterus: Present: normal, firm, fundal height below umbilicus. Absent: bogginess , tenderness Extremities: Present: normal. Absent: tenderness, edema Incision: Present: normal, dry, intact
--- NOTE | 2018-08-02 06:57 | Discharge Summary ---
Providers - Providers Date of Admission: 07/29/18 18:44 Date of discharge: 08/02/18 Attending physician: GABRIELE MORTON MD Primary care physician: GABRIELE MORTON MD Hospitalization Reason for admission: section Delivery: Procedure: section Incision: normal, dry, intact Other procedures: none complications: none Discharge diagnosis: IUP at term delivered baby: male Pertinent studies: Labs Hospital course: Normal hospital course. Condition at discharge: Good Disposition: DC-01 TO HOME OR SELFCARE - Discharge Diagnoses (1) Term delivered Status: Acute Plan - Discharge Medications Prescriptions: Ferrous Sulfate [Feosol 325 MG tab] 325 mg PO BID 30 Days #60 tablet Ibuprofen 800 mg PO Q6H 10 Days #30 tablet MDD 3200mg oxyCODONE /ACETAMINOPHEN [Percocet 5/325] 1 tab PO Q4HR PRN 14 Days #30 tab PRN Reason: Pain, Moderate (4-6) - Provider Discharge Summary Activity: routine, no sex for 6 weeks, no heavy lifting 4 weeks, no strenuous exercise Diet: routine Instructions: routine Additional instructions: Call your doctor immediately for: * Fever > 100.5 * Heavy vaginal bleeding ( >1 pad per hour) * Severe persistent headache * Shortness of breath * Reddened, hot, painful area to leg or breast - Follow up plan Follow up: GABRIELE MORTON MD [Primary Care Provider] - 7 Days
[2018-08-02] MEDS: COLACE PO SCH (11:40)
[2018-08-02] MEDS: FEOSOL PO SCH (11:40)
[2018-08-02 17:52] VITALS: BP 124/75
== END 2018-08-02 17:25 | disposition home or self-care (01) | DRG 765 ==
LOC: APU 18:44 → OB 07-30 02:17
PROVIDERS: ADMIT Obstetrics & Gynecology; ATTEND Obstetrics & Gynecology
PROC: 10D00Z1 Extraction of Products of Conception, Low, Open Approach (ICD-10-PCS; principal; 2018-07-30)
PROC: 3E0234Z Introduction of Serum, Toxoid and Vaccine into Muscle, Percutaneous Approach (ICD-10-PCS; 2018-08-01)
DX: O34.211 Maternal care for low transverse scar from previous cesarean delivery (principal); O41.03X0 Oligohydramnios, third trimester, not applicable or unspecified; O98.32 Other infections with a predominantly sexual mode of transmission complicating childbirth; O98.52 Other viral diseases complicating childbirth; A59.9 Trichomoniasis, unspecified; O99.824 Streptococcus B carrier state complicating childbirth; O99.52 Diseases of the respiratory system complicating childbirth; O99.02 Anemia complicating childbirth; D64.9 Anemia, unspecified; B00.9 Herpesviral infection, unspecified; Z3A.36 36 weeks gestation of pregnancy; Z37.0 Single live birth; Z23 Encounter for immunization
CPT/HCPCS: 36415; 85014; 85018; 85025; 86850; 86900; 86901; 88307; 90471; 90472; 90707; 90715; 99211; A6250; C9250; G0463; J0690; J1170; J1885; J2270; J2590; J2765; J7120

== ENCOUNTER 2020-07-01 22:37 | Observation (INO) | payer SELFPAY ==
[2020-07-02] MEDS ORDERED: LACTATED RINGERS 1,000 ML IV ONE (00:54)
[2020-07-02] MEDS ORDERED: D5W/LACTATED RINGERS 1,000 ML IV SCH (01:00)
[2020-07-02 02:32] LABS: Basophils % (Auto) 0.5 % (0.0-1.8); Eosinophils # (Auto) 0.1 K/mm3 (0.0-0.4); Hematocrit 26.5 % (30.3-42.9); Hemoglobin 8.5 gm/dl (10.1-14.3); Lymphocytes # (Auto) 1.7 K/mm3 (1.2-5.4); Mean Corpuscular HGB Conc 32 % (30-34); Mean Corpuscular Volume 79 fl (79-97); Monocytes # (Auto) 0.7 K/mm3 (0.0-0.8); Monocytes % (Auto) 10.4 % (0.0-7.3); Platelet Count 294 K/mm3 (140-440); Red Blood Count 3.36 M/mm3 (3.65-5.03); Red Cell Distribution Width 17.1 % (13.2-15.2)
--- NOTE | 2020-07-02 02:41 | Ultrasound Report ---
ULTRASOUND OBSTETRIC, 07/02/2020 CLINICAL INFORMATION/INDICATION: History of blunt trauma to the abdomen. Evaluate weight and BUSTER. COMPARISON: Obstetrical ultrasound, 04/25/2020 FINDINGS: There is a single intrauterine . BPD = 9.2 cm = 37 weeks, 1 day(s). Head circumference = 34 cm = 39 weeks, 1 day(s). Abdominal circumference = 35.3 cm = 39 weeks, 2 day(s). Femur length = 7.3 cm = 37 weeks, 1 day(s). Overall estimated sonographic age = 38 weeks, 1 day(s). heart rate is 136 beats per minute. Estimated weight is 3513 grams. position is cephalic. Placenta is posterior, fundal and right lateral and grade 3 . Amniotic fluid volume appears within normal limits, measuring 7.2 cm. Impression: 1. Single living intrauterine with estimated sonographic age of 38 weeks, 1 day(s). Signer Name: Janna Kilgore MD Signed: 07/02/2020 2:37 AM Workstation Name: [id number]
--- NOTE | 2020-07-02 02:42 | Ultrasound Report ---
ULTRASOUND BIOPHYSICAL PROFILE INDICATION / CLINICAL INFORMATION: Evaluate well-being COMPARISON: Obstetrical ultrasound, 07/02/2020 and 04/25/2020 FINDINGS: BREATHING MOVEMENT = 2 GROSS BODY MOVEMENT = 2 TONE = 2 QUALITATIVE AMNIOTIC FLUID VOLUME = 2 TOTAL BIOPHYSICAL SCORE = 06/16 AMNIOTIC FLUID INDEX (cm) = 7.2 PRESENTATION: Cephalic. HEART RATE (beats per minute): 136 IMPRESSION: 1. biophysical profile = 06/16 Signer Name: Janna Kilgore MD Signed: 07/02/2020 2:38 AM Workstation Name: [id number]
[2020-07-02 03:02] LABS: Hepatitis C Virus Antibody Non-Reactive (NonReactive)
[2020-07-02] MEDS ORDERED: ACETAMINOPHEN 500 MG TAB PO PRN (03:13)
[2020-07-02] MEDS ORDERED: oxyCODONE /ACETAMINOPHEN 5-325MG TAB PO PRN (03:14)
[2020-07-02 04:30] LABS: Bacteria,Urine 4+ /HPF (Negative); Bilirubin,Urine NEG (Negative); Blood,Urine NEG (Negative); Color,Urine Yellow (Yellow); Hyaline Casts,Urine 1 /LPF; Mucus,Urine 2+ /HPF; Protein,Urine <15 mg/dL mg/dL (Negative); Urobilinogen,Urine < 2.0 mg/dL (<2.0)
[2020-07-02 04:43] LABS: Amphetamine Screen,Urine PRESUMPTIVE NEGATIVE; Benzodiazepines Screen,Urine PRESUMPTIVE NEGATIVE; Cannabinoid Screen,Urine PRESUMPTIVE POSITIVE; Cocaine Screen,Urine PRESUMPTIVE NEGATIVE; Methadone Screen,Urine PRESUMPTIVE NEGATIVE; Opiate Screen,Urine PRESUMPTIVE NEGATIVE
--- NOTE | 2020-07-02 07:55 | Short Stay Summary ---
Short Stay Documentation Date of service: 07/02/20 Narrative H&P: 35y/o @ 38-39 weeks with unsure dating presents to labor and delivery triage after hitting her abdomen on the side of the tub after bathing. The patient denies any vaginal bleeding or leakage of fluid. The patient has not had any care during this . She also has unsure dating criteria. The patient was admitted for observation. - History Principal diagnosis: Abdominal trauma Past Medical History: No medical history Past Surgical History: Social history: no significant social history - Allergies and Medications Current Medications: Allergies No Known Allergies Allergy (Verified 12/13/15 14:27) Home Medications Medication Instructions Recorded Confirmed Last Taken Type Albuterol Sulfate [Proventil HFA] 1 - 2 puff IH Q4H PRN 04/14/15 07/30/18 11/09/17 History Vit No.130/Iron/Folic 1 each PO QDAY #30 tablet 03/26/17 07/30/18 1 Day Ago Rx [ Tablet] ~05/23/18 RX: Ferrous Sulfate [Feosol 325 MG 325 mg PO BID 30 Days #60 tablet 07/30/18 Unknown Rx tab] RX: Ibuprofen [Ibuprofen 800] 800 mg PO Q6H 10 Days #30 tablet 07/30/18 Unknown Rx MDD 3200mg oxyCODONE /ACETAMINOPHEN [Percocet 1 tab PO Q4HR PRN 14 Days #30 tab 07/30/18 Unknown Rx 5/325] Active Medications Acetaminophen (Tylenol) 1,000 mg PO Q4H PRN PRN Reason: Pain, Moderate (4-6) Dextrose/Lactated Ringer's (D5lr) 1,000 mls @ 125 mls/hr IV DIRECT JOCELYN Last Admin: 07/02/20 03:35 Dose: 125 mls/hr Documented by: Oxycodone/Acetaminophen (Percocet 5/325) 2 tab PO Q4H PRN PRN Reason: Pain , Severe (7-10) Last Admin: 07/02/20 03:33 Dose: 2 tab Documented by: - Physical exam General appearance: no acute distress Integumentary: no rash HEENT: Atraumatic Lungs: Clear to auscultation Breasts: deferred Heart: Regular rate Gastrointestinal: normal - Hospital course Hospital course: The patient was admitted to labor and delivery for observation. An ultrasound was performed that demonstrated evidence of biophysical profile of 8 out of 8. No evidence of overt abruption. The patient noted improvement of her symptoms during her observation. The patient has a prior history of 2 deliveries. She is strongly encouraged to proceed with a tubal ligation. - Disposition Condition at discharge: Good Disposition: DC-01 TO HOME OR SELFCARE - Discharge Diagnoses (1) Insufficient care Status: Acute Short Stay Discharge Plan Activity: no restrictions Diet: regular Additional Instructions: Schedule follow-up with [place] [facility] this week [address] [place] [address]. [place] [address] [phone]
[2020-07-03] MEDS ORDERED: SODIUM CHLORIDE 0.9% IRR 1,500 ML BOTTLE IR ONE (15:15)
[2020-07-03] MEDS ORDERED: WATER FOR IRRIG STERILE 1,500 ML BOTTLE IR ONE (15:15)
[2020-07-03 17:38] VITALS: BP 113/66
== END 2020-07-02 09:39 | disposition home or self-care (01) ==
LOC: TRG 22:37 → APU 22:45 → LD 07-02 00:57 → TRG 07-02 00:57
PROVIDERS: ADMIT Obstetrics & Gynecology; ATTEND Obstetrics & Gynecology
DX: O9A.213 Injury, poisoning and certain other consequences of external causes complicating pregnancy, third trimester (principal); O09.33 Supervision of pregnancy with insufficient antenatal care, third trimester; O26.893 Other specified pregnancy related conditions, third trimester; R10.9 Unspecified abdominal pain; O34.219 Maternal care for unspecified type scar from previous cesarean delivery; W01.198A Fall on same level from slipping, tripping and stumbling with subsequent striking against other object, initial encounter; Y93.E1 Activity, personal bathing and showering; Y92.002 Bathroom of unspecified non-institutional (private) residence as the place of occurrence of the external cause; Z3A.39 39 weeks gestation of pregnancy
CPT/HCPCS: 36415; 76816; 76819; 80307; 81001; 85025; 86592; 86706; 86762; 86803; 87086; 87806; 96360; 96361; G0378; J7120; J7121

== ENCOUNTER 2020-07-03 11:23 | Inpatient (IN) | payer OTHER ==
[2020-07-03] MEDS: LACTATED RINGERS 1,000 ML IV SCH ×2 (12:00→14:42)
[2020-07-03] MEDS ORDERED: METOCLOPRAMIDE 10 MG/2 ML INJ IV NR (12:15)
[2020-07-03] MEDS ORDERED: BICITRA ORAL LIQD 30ML PO NR (12:15)
[2020-07-03] MEDS ORDERED: FAMOTIDINE 20 MG/2 ML INJ IV NR (12:15)
[2020-07-03 12:32] LABS: Basophils # (Auto) 0.1 K/mm3 (0.0-0.1); Basophils % (Auto) 0.7 % (0.0-1.8); Eosinophils % (Auto) 0.6 % (0.0-4.3); Hemoglobin 8.6 gm/dl (10.1-14.3); Lymphocytes # (Auto) 1.7 K/mm3 (1.2-5.4); Lymphocytes % (Auto) 21.6 % (13.4-35.0); Mean Corpuscular HGB Conc 32 % (30-34); Mean Corpuscular Volume 79 fl (79-97); Monocytes # (Auto) 0.9 K/mm3 (0.0-0.8); Monocytes % (Auto) 11.2 % (0.0-7.3); Platelet Count 295 K/mm3 (140-440); Red Blood Count 3.42 M/mm3 (3.65-5.03); Red Cell Distribution Width 17.4 % (13.2-15.2)
[2020-07-03] MEDS ORDERED: ceFAZolin/Water 2 GM/20 ML 2 GM/20 ML SYRINGE IV NR (13:00)
[2020-07-03] MEDS ORDERED: OXYTOCIN 20 UNIT/1000ML DRIP 20 UNITS/1,000 ML BAG IV SCH ×2 (13:00→16:00)
--- NOTE | 2020-07-03 13:50 | History and Physical Report ---
History of Present Illness Date of examination: 07/03/20 Date of admission: 07/03/20 11:23 Chief complaint: delivery History of present illness: 35y/o @ 39+2 weeks presents for a scheduled delivery. The patient has not had care during this . Her dating is based on a 29 week scan. She has a history of 2 prior deliveries. She recently experienced trauma to her abdomen when she fell in the tub. She denies any ruben kage of fluid or vaginal bleeding. Her GBS status is unknown. The patient has been counseled for a repeat delivery and tubal ligation. Past History Past Medical History: asthma, other (anemia) Past Surgical History: section Social history: single - Obstetrical History Expected Date of Delivery: 07/08/20 Actual Gestation: 39 Week(s) 2 Day(s) : 9 Para: 7 Hx # Term Pregnancies: 5 Number of Pregnancies: 2 Spontaneous Abortions: 1 Induced : 0 Number of Living Children: 7 Medications and Allergies Allergies Allergy/AdvReac Type Severity Reaction Status Date / Time No Known Allergies Allergy Verified 12/13/15 14:27 Home Medications Medication Instructions Recorded Confirmed Last Taken Type Vit No.130/Iron/Folic 1 each PO QDAY #30 tablet 03/26/17 07/02/20 07/01/20 Rx [ Tablet] Active Meds: Active Medications Citric Acid/Sodium Citrate (Bicitra) 30 ml PO ONCE NR Stop: 07/03/20 20:00 Famotidine (Pepcid) 20 mg IV ONCE NR Stop: 07/03/20 20:00 Oxytocin/Sodium Chloride (Pitocin/Ns 20 Unit/1000ml Drip) 20 units in 1,000 mls @ 0 mls/hr IV TITR JOCELYN Lactated Ringer's (Lactated Ringers) 1,000 mls @ 2,250 mls/hr IV PREOP JOCELYN Stop: 07/04/20 13:27 Cefazolin Sodium (Ancef/Sterile Water 2 Gm/20 Ml) 2 gm in 20 mls @ 80 mls/hr IV PREOP NR; Protocol Stop: 07/03/20 23:00 Metoclopramide HCl (Reglan) 10 mg IV ONCE NR Stop: 07/03/20 20:00 Review of Systems All systems: negative Genitourinary: no vaginal bleeding, no leakage of fluid - Vital Signs Vital signs: Vital Signs Temp Pulse Resp BP 98.6 F 60 15 132/78 07/03/20 12:04 07/03/20 12:04 07/03/20 12:04 07/03/20 12:04 Temp Pulse Resp BP Pulse Ox 98.6 F 60 15 132/78 07/03/20 12:04 07/03/20 12:14 07/03/20 12:04 07/03/20 12:14 - Physical Exam Breasts: Positive: deferred Cardiovascular: Regular rate Lungs: Positive: Clear to auscultation Abdomen: Positive: normal appearance Results Result Diagrams: 07/03/20 12:00 Abnormal lab results 07/03/20 Range/Units 12:00 RBC 3.42 L (3.65-5.03) M/mm3 Hgb 8.6 L (10.1-14.3) gm/dl Hct 27.0 L (30.3-42.9) % MCH 25 L (28-32) pg RDW 17.4 H (13.2-15.2) % [place] % (Auto) 11.2 H (0.0-7.3) % [place] # 0.9 H (0.0-0.8) K/mm3 All other labs normal. Assessment and Plan - Patient Problems (1) Iron deficiency anemia due to chronic blood loss Current Visit: Yes Status: Acute Plan to address problem: will proceed with a repeat delivery and tubal ligation patient has been counseled on a probable blood transfusion (2) Insufficient care Current Visit: No Status: Acute (3) Previous section Current Visit: No Status: Acute
--- NOTE | 2020-07-03 14:40 | Anesthesia Consultation ---
Anesthesia Consult and Med Hx Date of service: 07/03/20 - Airway Anesthetic Teeth Evaluation: Good ROM Head & Neck: Adequate Mental/Hyoid Distance: Adequate Mallampati Class: Class II Intubation Access Assessment: Probably Good - Pulmonary Exam CTA: Yes - Cardiac Exam Cardiac Exam: RRR - Pre-Operative Health Status ASA Pre-Surgery Classification: ASA2 Proposed Anesthetic Plan: Spinal - Pulmonary Hx Asthma: Yes (LAST ATTACK 3 YEARS AGO) COPD: No Hx Pneumonia: No - Cardiovascular System Hx Hypertension: No - Central Nervous System Hx Seizures: No Hx Psychiatric Problems: No - Endocrine Hx Renal Disease: No Hx End Stage Renal Disease: No Hx Hypothyroidism: No Hx Hyperthyroidism: No - Hematic Hx Anemia: Yes Hx Sickle Cell Disease: No - Other Systems Hx Alcohol Use: No
--- NOTE | 2020-07-03 14:40 | Anesthesia Day of Surgery ---
Anesthesia Day of Surgery - Day of Surgery Patient Examined: Yes Patient H&P Reviewed: Yes Patient is NPO: Yes
[2020-07-03] MEDS ORDERED: BUPIVACAINE/PF (0.5%) 5 MG/1 ML 30 ML VIAL INFILTRATI ONE (14:53)
[2020-07-03] MEDS ORDERED: DEXMEDETOMIDINE 200 MCG/2 ML VIAL IV ONE (14:53)
[2020-07-03] MEDS ORDERED: ONDANSETRON 4 MG/2 ML INJ ONE ×2 (15:00→15:04)
[2020-07-03] MEDS ORDERED: KETOROLAC 30 MG/1 ML INJ ONE (15:04)
[2020-07-03] MEDS ORDERED: MORPHINE 4 MG/1 ML INJ IV PRN (15:13)
[2020-07-03] MEDS ORDERED: ACETAMINOPHEN 325 MG TAB PO PRN (15:13)
[2020-07-03] MEDS ORDERED: NALOXONE 0.4 MG/1 ML INJ IV PRN (15:13)
[2020-07-03] MEDS ORDERED: ONDANSETRON 4 MG/2 ML INJ IV PRN (15:13)
[2020-07-03] MEDS ORDERED: LANOLIN/ZINC/DIMETHICONE (LANSINOH) 7 GM TP PRN (15:13)
[2020-07-03] MEDS ORDERED: WITCH HAZEL/ GLYCERIN PAD TP PRN (15:13)
[2020-07-03] MEDS ORDERED: MAGNESIUM HYDROXIDE (MOM) ORAL LIQD UDC PO PRN (15:13)
[2020-07-03] MEDS ORDERED: ePHEDrine SULFATE 50 MG/1 ML INJ ONE (15:24)
[2020-07-03] MEDS ORDERED: PHENYLEPHRINE/NS 1,000 MCG/10 ML SYRINGE (OR USE) IV ONE (15:55)
--- NOTE | 2020-07-03 16:22 | Procedure Note ---
OB Delivery Note - Delivery Date of Delivery: 07/03/20 Surgeon: GABRIEL ESPARZA Estimated blood loss: other (900 mL) - Section Preop diagnosis: repeat Postop diagnosis: same section procedure: section, repeat low transverse, bilateral tubal ligation Disposition: PACU Complications: none - Infant A at 1 minute: 8 at 5 minutes: 9 Infant Gender: Female (6 pounds 13 ounces)
--- NOTE | 2020-07-03 16:27 | Operative Report ---
Operative Report Operative Report: Date of surgery: July 03, 2020 Preoperative diagnosis: at 39+2 weeks; previous delivery; insufficient care; undesired fertility Postoperative diagnosis: Same as above Procedure: Repeat low transverse delivery and bilateral tubal ligation via Wynne method; lysis of adhesions Surgeon: Jennifer Jay M.D. Anesthesia: Regional Estimated blood loss: 900 mL IV fluids: 1600 mL Urine output: 30 mL Findings: Liveborn female infant with Apgars of 8 and 9 weight 6 pounds 13 ounces Indications: 35-year-old -2-1-7 at 39+2 weeks who presents for repeat delivery and bilateral tubal ligation. The patient has not had any care during her . Procedure: The patient was taken to the operating room and given regional anesthesia without complication. She was prepped and draped in a normal sterile fashion. A Pfannenstiel skin incision was made down to layer the fascia which was nicked in the midline extended laterally with the Bovie cautery. The superior aspect of the rectus fascia was grasped with Ben clamps x2 and the rectus muscles off sharply. This was done in inferior fashion as well. The rectus muscle midline and peritoneum entered bluntly. There was evidence of extensive adhesions of the anterior portion of the uterus to the rectus fascia. Lysis of adhesions had to be performed in order to release the uterus from the fascia. An Ariel retractor was then inserted. A bladder blade was placed. The vesicouterine peritoneum was then entered sharply with Metzenbaum scissors. A bladder flap was created digitally. A low transverse uterine incision was then made and extended digitally. There was clear fluid upon entry into the uterine cavity. The head was delivered through the incision with fundal pressure. The cord was clamped and cut x2 and was passed off to pediatrics. The placenta was then manually extracted. The uterus was not able to be exteriorized. The clots and debris were cleared with a laparotomy sponge. The uterine incision was repaired in situ. The uterine incision was then closed in a running locked fashion with 0 Vicryl additional imbricating stitch was applied for 2 layer closure. The posterior cul-de-sac was then copiously irrigated. The left fallopian tube was isolated with the Sheldon. The ampullary portion was identified. A window was created in the mesosalpinx with the Bovie cautery. The distal proximal area of the ampullary tube were ligated x2 with 0 chromic. 1 cm portion of fallopian tube was then removed. This was performed on the contralateral side after identification of the fallopian tube. The gutters were then irrigated. The Ariel retractor was then removed. The peritoneum was then reapproximated with 3-0 Vicryl incorporating the rectus muscle. The fascia was then closed with 0 Vicryl in a running fashion. The skin was then reapproximated with 3-0 Monocryl on a Miguel needle subcuticular fashion. Steri-Strips to place across the incision and a Crede procedures performed at the end of the surgery. A pressure dressing was applied to the incision. The surgery productive of a liveborn female infant with Apgars of 8 and 9 weight 6 pounds 13 ounces. The patient was taken to the recovery room in stable condition. All sponge laps and needle counts correct x2.
--- NOTE | 2020-07-03 17:20 | Post Anesthesia Evaluation ---
- Post Anesthesia Evaluation Patient Participated: Yes Airway Patent: Yes Stable Respiratory Function: Yes Nausea/Vomiting: No Temp > 96.8F: Yes Pain Manageable: Yes Adequeate Hydration: Yes Anesthesia Complications: No Block Receding Appropriately: Yes
--- NOTE | 2020-07-03 17:21 | Progress Note ---
Regional Anesthesia Block - Regional Anesthesia Block Start Time: 16:25 Stop Time: 16:30 Performed By:: CLARA GRAHAM Procedure: U/S guided bilateral tap block performed for post-operative pain requested by Dr. Henderson. H&P & labs reviewed. Procedure explained, questions answered, consent obtained. Patient in the supine position with ekg, blood pressure cuff and pulse ox on and working in PACU. Timeout performed immediately before start of procedure. Probe placed in the mid-axillary line and the external oblique, internal oblique, and transverse abdominus muscles identified. Skin was cleansed with 0.5% Chlorahexadine and allowed to dry. A 4" 20 G Sheets echogenic needle was advanced in plane until the tip was in the fascial plane between the internal oblique and the transverse abdominus. After negative aspiration 35 ml/side of [30 ml 0.5% Bupivacaine], [50 mcg dexmedetomidine], [8 mg dexamethasone], and [40 ml sterile saline] was injected in 5 ml increments with negative aspiration in between. Patient tolerated procedure well. Ramsey MAYA
[2020-07-03] MEDS: D5W/LACTATED RINGERS 1,000 ML IV SCH (19:31)
[2020-07-03] MEDS: KETOROLAC 30 MG/1 ML INJ IV PRN (19:38)
[2020-07-03] MEDS: oxyCODONE /ACETAMINOPHEN 5-325MG TAB PO PRN (22:03)
[2020-07-03] MEDS ORDERED: fentaNYL 100 MCG/2 ML INJ ONE (23:32)
[2020-07-04] MEDS: D5W/LACTATED RINGERS 1,000 ML IV SCH (02:53)
[2020-07-04] MEDS: fentaNYL 100 MCG/2 ML INJ IV PRN ×2 (02:56→05:51)
[2020-07-04 06:37] LABS: Hematocrit 16.2 % (30.3-42.9)
[2020-07-04] MEDS ORDERED: SODIUM CHLORIDE 0.9% 500 ML 500 ML IV NR (07:06)
[2020-07-04] MEDS: oxyCODONE /ACETAMINOPHEN 5-325MG TAB PO PRN ×3 (08:50→20:46)
[2020-07-04] MEDS: KETOROLAC 30 MG/1 ML INJ IV PRN (10:16)
--- NOTE | 2020-07-04 10:31 | Progress Note ---
Assessment and Plan A: POD#1 s/p repeat at term, tubal ligation NO care Acute on chronic anemia Poor pain control P: 2 units PRBCs ordered for transfusion Optimize pain regimen Closely monitor clinical status Subjective - Subjective Date of service: 07/04/20 Principal diagnosis: s/p repeat cesaren with tubal ligation Interval history: Pt reports not being able to sleep all night due to poor pain control. Patient reports: voiding normally, pain poorly controlled, no flatus, no bowel movement, no ambulating normally (minimally ) : doing well Objective - Vital Signs Latest vital signs: Vital Signs Temp Pulse Resp BP BP Pulse Ox 07/04/20 08:15 97.8 F 65 18 122/58 100 07/04/20 05:51 18 07/04/20 04:00 98.6 F 69 16 114/74 07/03/20 23:46 18 07/03/20 23:40 97.8 F 61 18 106/66 100 07/03/20 22:03 17 07/03/20 21:01 18 07/03/20 20:31 18 07/03/20 19:38 20 07/03/20 19:30 98.7 F 71 16 104/60 07/03/20 18:37 98.4 F 07/03/20 18:25 57 L 101/57 99 07/03/20 12:14 60 132/78 07/03/20 12:04 98.6 F 60 15 132/78 Intake and Output 07/03/20 07/04/20 07/04/20 22:59 06:59 14:59 Intake Total 200 1540.833 240 Output Total 150 Balance 200 1540.833 90 Intake: IV 920.833 D5lr 1,000 ml @ 125 mls/ 920.833 hr IV DIRECT JOCELYN Rx#: [id number] Oral 620 240 Intake, Free Water 200 Output: Urine 150 Void 150 Other: Total, Intake Amount 620 240 Total, Output Amount 150 # Voids Indwelling Catheter 600 Void 1 # Bowel Movements 0 - Exam Breasts: Present: deferred Abdomen: Present: soft, distention (moderate ) Uterus: Present: fundal height at umbilicus Extremities: Present: edema (trace) Incision: Present: dressed - Labs Labs: Abnormal lab results 07/03/20 07/03/20 07/04/20 Range/Units 12:00 12:00 04:08 RBC 3.42 L (3.65-5.03) M/mm3 Hgb 8.6 L 5.0 L* D (10.1-14.3) gm/dl Hct 27.0 L 16.2 L* D (30.3-42.9) % MCH 25 L (28-32) pg RDW 17.4 H (13.2-15.2) % Cook % (Auto) 11.2 H (0.0-7.3) % Cook # 0.9 H (0.0-0.8) K/mm3 Crossmatch See Detail
[2020-07-04] MEDS: SIMETHICONE 80 MG CHEW TAB PO PRN (11:26)
[2020-07-04] MEDS: HYDROmorphone 1 MG/1 ML INJ IV PRN ×2 (12:31→16:49)
[2020-07-04] MEDS: KETOROLAC 30 MG/1 ML INJ IV SCH ×2 (16:19→22:12)
[2020-07-05] MEDS: oxyCODONE /ACETAMINOPHEN 5-325MG TAB PO PRN ×2 (00:39→08:53)
[2020-07-05] MEDS: KETOROLAC 30 MG/1 ML INJ IV SCH (03:26)
[2020-07-05] MEDS: SIMETHICONE 80 MG CHEW TAB PO PRN ×2 (03:34→09:08)
[2020-07-05 05:05] LABS: Hematocrit 16.6 % (30.3-42.9); Hemoglobin 5.3 gm/dl (10.1-14.3)
[2020-07-05] MEDS: MAGNESIUM HYDROXIDE (MOM) ORAL LIQD UDC PO SCH ×5 (05:05→20:34)
[2020-07-05] MEDS: HYDROmorphone 1 MG/1 ML INJ IV PRN ×4 (05:06→20:34)
[2020-07-05] MEDS ORDERED: SODIUM CHLORIDE 0.9% 500 ML 500 ML IV NR (07:15)
--- NOTE | 2020-07-05 07:47 | Progress Note ---
Assessment and Plan A: POD#2 s/p repeat at term, tubal ligation NO care Acute on chronic anemia s/p 2 units PRBCs. Inappropriate rise in Hemoglobin and Hematocrit Poor pain control- improved P: Ct abdomen pelvis this morning Closely monitor clinical status Subjective - Subjective Date of service: 07/05/20 Principal diagnosis: s/p repeat cesaren with tubal ligation Interval history: Pt reports improved pain control.Minimal lochia. Inappropriate rise in hemoglobin and hematocrit after transfusion. Patient reports: voiding normally, flatus (minimal ), ambulating normally (m inimally ), no bowel movement : doing well Objective - Vital Signs Latest vital signs: Vital Signs Temp Pulse Resp BP BP Pulse Ox 07/04/20 23:56 98.1 F 68 20 108/60 100 07/04/20 16:07 59 L 139/66 94 07/04/20 15:51 98.7 F 70 18 122/53 100 07/04/20 15:30 97.9 F 70 18 122/53 100 07/04/20 13:50 98.5 F 07/04/20 13:48 68 120/60 100 07/04/20 13:26 71 100 07/04/20 13:25 97.9 F 70 125/64 99 07/04/20 13:08 64 132/70 46 L 07/04/20 12:59 71 14 123/73 100 07/04/20 12:31 65 102/56 100 07/04/20 08:15 97.8 F 65 18 122/58 100 Intake and Output 07/04/20 07/05/20 07/05/20 22:59 06:59 14:59 Intake Total 740 720 Balance 740 720 Intake: Oral 240 720 Blood Product 500 Leukoreduced Rbc Part 2 250 Unit [id number] Leukoreduced Rbc Part 2 250 Unit [id number] Other: Total, Intake Amount 240 240 # Voids Void 1 1 - Exam Breasts: Present: deferred Abdomen: Present: soft (disted), distention Uterus: Present: fundal height at umbilicus Extremities: Present: normal Incision: Present: dressed - Labs Labs: Abnormal lab results 07/03/20 07/05/20 Range/Units 12:00 03:58 Hgb 5.3 L* (10.1-14.3) gm/dl Hct 16.6 L* (30.3-42.9) % Crossmatch See Detail
--- NOTE | 2020-07-05 08:47 | Cat Scan Report ---
CT abdomen pelvis wo con INDICATION: s/p sectio on 07/03/20, anemia. COMPARISON: None TECHNIQUE: Abdominal and pelvic CT exam performed. All CT scans at this location are performed using CT dose reduction for ALARA by means of automated exposure control. FINDINGS: CT ABDOMEN and PELVIS: Lung Bases: Bibasilar atelectasis. The blood pool is much less dense than the myocardium consistent w ith anemia. Liver: No significant abnormality. Biliary: No significant abnormality. Spleen: No significant abnormality. Pancreas: No significant abnormality. Adrenals: No significant abnormality. Kidneys: No significant abnormality. Lymphatics: No lymphadenopathy. Vasculature: No significant abnormality. Bowel: No obstruction. Pelvis: Large post gravid heterogeneous uterus. There there is an area of hyperdensity in the lower e ndometrial canal likely related to acute blood products seen on sagittal image 81 of series 602. Ther e is a high area of hypoattenuation in the lower uterine segment related to . Large volume o f hemoperitoneum is present which extends from the pelvis to the upper abdomen. Active hemorrhage is not assessed on this examination without IV contrast. Postoperative changes from recent including a small quantity of pneumoperitoneum and gas w ithin the ventral abdomen. Osseous Structures: No aggressive osseous lesion. Additional Findings: None IMPRESSION: 1. Postoperative changes from with large volume of hemoperitoneum extending from the pelvis to the upper abdomen. Signer Name: Dejon Jo MD Signed: 07/05/2020 8:43 AM Workstation Name: [id number]
[2020-07-05 10:03] LABS: Alanine Aminotransferase 11 units/L (7-56); Albumin 3.4 g/dL (3.9-5); Blood Urea Nitrogen 8 mg/dL (7-17); Hemolysis Index 0
[2020-07-05 10:21] LABS: BUN/Creatinine Ratio 13
--- NOTE | 2020-07-05 13:10 | Event Note ---
Date: 07/05/20 On-call MD not notified once CT scan was completed. CT scan reviewed with large amount of hemoperitoneum extending from pelvis into upper abdomen. Plan to repeat CT scan with IV contrast. IR physician lieutenant colonel Dr Godinez has been contacted and made aware of this patient. Continue to closely monitor clinically.
--- NOTE | 2020-07-05 14:42 | Consultation ---
History of Present Illness - Reason for Consult Consult date: 07/05/20 hemorrhage - History of Present Illness Patient with a history of who initially presented with a hemoglobin of 8.6 which then dropped to 5.0. No vaginal bleeding. The patient underwent a CT scan of her abdomen which demonstrates hemoperitoneum. The patient then underwent repeat CT scan of the abdomen with IV contrast in single phase. No active source of bleeding is identified. The the uterus is enlarged with prominent vascularity. Moderate amount of stable hemoperitoneum is present along the paracolic gutters in the dependent portion of the pelvis. On examination, the patient is alert active and oriented. Sitting in bed holding her baby at time of examination. No complaints of abdominal pain. Past History Past Medical History: other (Multiple prior pregnancies) Past Surgical History: hysterectomy Social history: single Medications and Allergies Allergies Allergy/AdvReac Type Severity Reaction Status Date / Time No Known Allergies Allergy Verified 12/13/15 14:27 Home Medications Medication Instructions Recorded Confirmed Last Taken Type Vit No.130/Iron/Folic 1 each PO QDAY #30 tablet 03/26/17 07/04/20 07/01/20 Rx [ Tablet] Active Meds: Active Medications Acetaminophen (Tylenol) 650 mg PO Q4H PRN PRN Reason: Fever >100.5/BARRON Fentanyl (Sublimaze) 100 mcg IV Q2H PRN PRN Reason: Pain , Severe (7-10) Last Admin: 07/04/20 05:51 Dose: 100 mcg Documented by: Hydromorphone HCl (Dilaudid) 1 mg IV Q4H PRN PRN Reason: Pain , Severe (7-10) Last Admin: 07/05/20 10:24 Dose: 1 mg Documented by: Oxytocin/Sodium Chloride (Pitocin/Ns 20 Unit/1000ml Drip) 20 units in 1,000 mls @ 250 mls/hr IV DIRECT JOCELYN Dextrose/Lactated Ringer's (D5lr) 1,000 mls @ 125 mls/hr IV DIRECT JOCELYN Last Admin: 07/04/20 02:53 Dose: 125 mls/hr Documented by: Ibuprofen (Ibuprofen) 800 mg PO Q6H PRN PRN Reason: Pain, Mild (1-3) Magnesium Hydroxide (Milk Of Magnesia) 30 ml PO Q4H JOCELYN Last Admin: 08/27/20 09:08 Dose: 30 ml Documented by: Multi-Ingredient Ointment (Lansinoh) 1 applic TP PRN PRN PRN Reason: dryness/cracking Naloxone HCl (Naloxone) 0.1 mg IV Q2MIN PRN PRN Reason: Res Rate </= 8 or 02 SAT < 92% Ondansetron HCl (Zofran) 4 mg IV Q8H PRN PRN Reason: Nausea And Vomiting Oxycodone/Acetaminophen (Percocet 5/325) 2 tab PO Q4H PRN PRN Reason: Pain, Moderate (4-6) Last Admin: 07/05/20 08:53 Dose: 2 tab Documented by: Simethicone (Mylicon) 80 mg PO Q6H PRN PRN Reason: Gas pain Last Admin: 07/05/20 09:08 Dose: 80 mg Documented by: Andrew Pires/Glycerin (Tucks Pad) 1 each TP PRN PRN PRN Reason: Hemorrhoids/cleansing/soothing Review of Systems All systems: negative Exam - Constitutional Vitals: Temp Pulse Resp BP Pulse Ox 98.2 F 74 20 129/83 100 07/05/20 08:05 07/05/20 08:05 07/05/20 10:24 07/05/20 08:05 07/04/20 23:56 General appearance: Present: no acute distress - EENT Eyes: Present: EOM intact ENT: hearing intact - Neck Neck: Present: supple, normal ROM - Respiratory Respiratory effort: normal - Abdominal General gastrointestinal: Present: other (Post ) Female genitourinary: Present: deferred - Rectal Rectal Exam: deferred - Psychiatric Psychiatric: appropriate mood/affect, cooperative Results - Labs CBC & Chem 7: 07/05/20 03:58 07/05/20 09:16 Labs: Abnormal lab results 07/03/20 07/05/20 07/05/20 Range/Units 12:00 03:58 09:16 Hgb 5.3 L* (10.1-14.3) gm/dl Hct 16.6 L* (30.3-42.9) % Alkaline Phosphatase 160 H (35-129) units/L Albumin 3.4 L (3.9-5) g/dL Crossmatch See Detail - Imaging and Cardiology CT scan - abdomen: report reviewed, image reviewed Assessment and Plan Patient with baseline anemia with drop in hemoglobin following . She was transfused 4 units of blood with only minimal response. On repeat CT scan, no active sources of extravasation are identified. Patient is clinically stable. Discussed patient's care with her formal waiter/waitress. Patient will need additional blood transfusion. At this time, would watch closely to determine if any intervention would be necessary.
--- NOTE | 2020-07-05 14:47 | Event Note ---
Date: 07/05/20 Dr Godinez called on-call physician regarding CT scan. He notes no evidence of active bleeding nor any large collection of blood to be drained at this time. Recommend transfusion of 2 additional units of PRBCs with follow up hemoglobin and hematocrit. Charge nurse made aware of care plan. Pt and her boyfriend also made aware of care plan.
[2020-07-05] MEDS: IBUPROFEN 800 MG TAB PO PRN (15:09)
[2020-07-05] MEDS ORDERED: SODIUM CHLORIDE 0.9% 1000 ML 1,000 ML ONE (15:39)
--- NOTE | 2020-07-05 15:45 | Cat Scan Report ---
CT PELVIS WITH IV CONTRAST INDICATION / CLINICAL INFORMATION: MAIN. TECHNIQUE: Axial CT images were obtained through the pelvis after IV contrast. All CT scans at this location are performed using CT dose reduction for ALARA by means of automated exposure control. COMPARISON: CT abdomen and pelvis without contrast dated 07/05/2020. FINDINGS: BOWEL: No significant abnormality. APPENDIX: No significant abnormality. PERITONEUM: Postoperative Hemopneumoperitoneum similar to prior exam. LYMPH NODES: No significant adenopathy. ARTERIES: No significant abnormality. No evidence of active extravasation. VEINS: No significant abnormality. URINARY BLADDER: No significant abnormality. REPRODUCTIVE ORGANS: Postoperative changes status post are again noted. ADDITIONAL FINDINGS: Postsurgical changes to the ventral abdominal wall. SKELETAL SYSTEM: No significant abnormality. IMPRESSION: 1. Persistent postoperative hemopneumoperitoneum status post . 2. Additional findings are unchanged prior exam. Signer Name: Brandon Mclean MD Signed: 07/05/2020 3:41 PM Workstation Name: [id number]
[2020-07-06] MEDS: HYDROmorphone 1 MG/1 ML INJ IV PRN ×3 (00:57→09:19)
[2020-07-06] MEDS: IBUPROFEN 800 MG TAB PO PRN (03:30)
[2020-07-06] MEDS: MAGNESIUM HYDROXIDE (MOM) ORAL LIQD UDC PO SCH ×4 (03:32→15:31)
[2020-07-06 05:13] LABS: Hemoglobin 6.2 gm/dl (10.1-14.3)
[2020-07-06 05:17] LABS: Hematocrit 18.6 % (30.3-42.9)
[2020-07-06] MEDS: oxyCODONE /ACETAMINOPHEN 5-325MG TAB PO PRN ×2 (08:06→13:18)
--- NOTE | 2020-07-06 11:42 | Progress Note ---
Assessment and Plan A: POD#3 s/p repeat at term, tubal ligation NO care Acute on chronic anemia s/p 4 units PRBCs; s/p CT abdomen with evidence of hemoperitoneum but no active bleeding. Poor pain control- improved Pt request to be discharged today P: Discharge today with follow up in office on Thursday Subjective - Subjective Date of service: 07/06/20 Principal diagnosis: s/p repeat cesaren with tubal ligation Interval history: Pt feel very well this morning. She denies any pain presently. She had a bowel movement this morning. Ambulating well. Voiding well. Pt is asking to be discharged today. Patient reports: appetite normal, voiding normally, pain well controlled, flatus, bowel movement, ambulating normally : doing well Objective - Vital Signs Latest vital signs: Vital Signs Temp Pulse Resp BP Pulse Ox 07/06/20 09:19 18 07/06/20 08:06 20 07/06/20 08:04 98.3 F 18 139/76 07/06/20 00:12 98.4 F 79 20 142/83 100 07/05/20 21:05 98.3 F 68 20 148/88 07/05/20 20:22 98.0 F 68 20 133/78 07/05/20 19:52 98.4 F 79 20 131/81 98 07/05/20 19:22 98.4 F 82 20 139/82 07/05/20 18:52 98.7 F 68 20 138/86 07/05/20 18:37 98.3 F 67 20 132/82 07/05/20 18:22 98.2 F 68 18 133/77 99 07/05/20 17:51 98.0 F 81 18 137/82 100 07/05/20 17:21 97.9 F 72 18 125/78 07/05/20 16:51 98.3 F 78 18 137/74 07/05/20 16:21 98.4 F 72 18 137/74 07/05/20 16:06 98.0 F 82 20 129/77 07/05/20 15:28 20 07/05/20 15:09 20 Intake and Output 07/05/20 07/06/20 07/06/20 22:59 06:59 14:59 Intake Total 370 490 Balance 370 490 Intake: IV 10 Right Wrist 10 Oral 120 480 Blood Product 250 Leukoreduced Rbc Part 2 0 Unit [id number] Leukoreduced Red Blood 250 Cells Unit [id number] Other: Total, Intake Amount 120 240 # Voids Void 1 1 # Bowel Movements 1 - Exam Breasts: Present: deferred Abdomen: Present: soft, distention (mild, improved since yesteday ) Uterus: Present: fundal height below umbilicus Extremities: Present: edema (trace ) Incision: Present: intact (with steristrips ) - Labs Labs: Abnormal lab results 07/03/20 07/06/20 Range/Units 12:00 03:50 Hgb 6.2 L (10.1-14.3) gm/dl Hct 18.6 L* (30.3-42.9) % Crossmatch See Detail
--- NOTE | 2020-07-06 11:46 | Discharge Summary ---
Providers - Providers Date of Admission: 07/03/20 11:23 Date of discharge: 07/06/20 Attending physician: GABRIEL ESPARZA Primary care physician: CELL COVERER Hospitalization Reason for admission: section Delivery: Procedure: section, bilateral tubal ligation, repeat low transverse Procedure details: Please see operative report CT abdomen and pelvis Transfusion of 4 units PRBCs Discharge diagnosis: IUP at term delivered [place] baby: female Hospital course: Pt was admitted for scheduled section which she underwent and tolerated well. Pt was noted to have acute on chronic postoperative anemia and was transfused 2 units with no rise in hemoglobin and hematocrit. CT abdomen pelvis showed hemoperitoneum, but no active bleeding. Interventional Radiologist consulted with no evidence of active bleeding nor a collection that would warrant drainage. Pt was then transfused another 2 unit with a modest rise in hemoglobin. On POD#3, the patient was ambulating without dizziness, voiding, passing flatus and had a bowel movement. She will follow up on Thursday07/09/20 at [facility] with Dr Dawson. Condition at discharge: Stable Disposition: DC-01 TO HOME OR SELFCARE - Discharge Diagnoses (1) S/P section Status: Acute (2) Acute on chronic anemia Status: Acute (3) Advanced maternal age (AMA) in Status: Acute (4) Iron deficiency anemia due to chronic blood loss Status: Acute (5) Insufficient care Status: Acute Qualifiers: Trimester: third trimester Qualified Code(s): O09.33 - Supervision of with insufficient care, third trimester Plan - Discharge Medications Prescriptions: Docusate Sodium [Colace] 100 mg PO BID PRN #60 capsule PRN Reason: Constipation Ferrous Sulfate [Feosol 325 MG tab] 325 mg PO TID #90 tablet Ibuprofen [Motrin] 800 mg PO Q8HR PRN #30 tablet PRN Reason: Pain, Moderate (4-6) oxyCODONE /ACETAMINOPHEN [Percocet 5/325] 1 tab PO Q6HR PRN #30 tablet PRN Reason: Pain Simethicone 80 mg PO TID PRN #30 tab.chew PRN Reason: Gas Pain - Provider Discharge Summary Activity: routine, no sex for 6 weeks, no heavy lifting 4 weeks, no strenuous exercise Diet: routine Instructions: routine Additional instructions: [] Smoking cessation referral if applicable(refer to patient education folder for contact #) [] Refer to [facility] Booklet Call your doctor immediately for: * Fever > 100.5 * Heavy vaginal bleeding ( >1 pad per hour) * Severe persistent headache * Shortness of breath * Reddened, hot, painful area to leg or breast * Drainage or odor from incision. * Keep incision clean and dry at all times and follow doctor's instructions regarding bathing/showering - Follow up plan Follow up: PRIMARY CAREMD [Primary Care Provider] - 7 Days TONI DAWSON MD [Staff Physician] - 07/09/20 (Please call to schedule a postope rative appt )
[2020-07-06 14:48] VITALS: BP 134/75
== END 2020-07-06 14:06 | disposition home or self-care (01) | DRG 784 ==
LOC: APU 11:23 → OB 18:30
PROVIDERS: ADMIT Obstetrics & Gynecology; ATTEND Obstetrics & Gynecology
PROC: 10D00Z1 Extraction of Products of Conception, Low, Open Approach (ICD-10-PCS; principal; 2020-07-03)
PROC: 0UB70ZZ Excision of Bilateral Fallopian Tubes, Open Approach (ICD-10-PCS; 2020-07-03)
PROC: 0UN90ZZ Release Uterus, Open Approach (ICD-10-PCS; 2020-07-03)
PROC: 30233N1 Transfusion of Nonautologous Red Blood Cells into Peripheral Vein, Percutaneous Approach (ICD-10-PCS; 2020-07-04)
DX: O34.211 Maternal care for low transverse scar from previous cesarean delivery (principal); D62 Acute posthemorrhagic anemia; Z37.0 Single live birth; Z3A.39 39 weeks gestation of pregnancy; O90.81 Anemia of the puerperium; N73.6 Female pelvic peritoneal adhesions (postinfective)
CPT/HCPCS: 36415; 72193; 74176; 80053; 85014; 85018; 85025; 86850; 86900; 86901; 86920; 88302; G0378; J0690; J1170; J1885; J2270; J2370; J2405; J2590; J2765; J3010; J3490; J7030; J7040; J7120; J7121; P9016; Q9967

== ENCOUNTER 2020-08-05 22:34 | Emergency (ER) | payer OTHER ==
[2020-08-06 00:20] LABS: Basophils # (Auto) 0.1 K/mm3 (0.0-0.1); Basophils % (Auto) 0.9 % (0.0-1.8); Eosinophils # (Auto) 0.2 K/mm3 (0.0-0.4); Eosinophils % (Auto) 3.5 % (0.0-4.3); Hematocrit 33.7 % (30.3-42.9); Hemoglobin 11.4 gm/dl (10.1-14.3); Mean Corpuscular HGB Conc 34 % (30-34); Mean Corpuscular Volume 84 fl (79-97); Monocytes # (Auto) 0.6 K/mm3 (0.0-0.8); Monocytes % (Auto) 9.7 % (0.0-7.3); Platelet Count 275 K/mm3 (140-440)
[2020-08-06 00:22] LABS: Alanine Aminotransferase 7 units/L (7-56); Albumin 4.3 g/dL (3.9-5); Blood Urea Nitrogen 12 mg/dL (7-17); Calcium 9.5 mg/dL (8.4-10.2); Hemolysis Index 10
[2020-08-06 00:29] LABS: Bilirubin,Urine NEG (Negative); Blood,Urine NEG (Negative); Color,Urine Yellow (Yellow); Mucus,Urine FEW /HPF; Protein,Urine <15 mg/dL mg/dL (Negative); Urobilinogen,Urine < 2.0 mg/dL (<2.0)
[2020-08-06 00:38] LABS: BUN/Creatinine Ratio 17
[2020-08-06 04:07] VITALS: BP 142/97
--- NOTE | 2020-08-06 04:10 | Emergency Department Report ---
ED Abdominal Pain HPI - General Chief Complaint: Abdominal Pain Stated Complaint: ABD PAIN/POST Time Seen by Provider: 08/06/20 03:41 Source: patient Mode of arrival: Ambulatory Limitations: No Limitations - History of Present Illness Initial Comments: 35-year-old -Surinamese female patient presents with complaints of lower abdominal pain and vaginal bleeding x today. She reports that on 07/03/[address] Dawson, [facility]. Patient had a postop complication of a large hemoperitoneum and an H&H of 5.5. She states she has since been following with Dr. Dawson and recently finished clindamycin yesterday. She states that she also stopped taking ibuprofen and oxycodone due to running out yesterday. She reports that she does have some abdominal swelling, however this is been chronic since her and denies any new changes. She also denies any dysuria/hematuria, vaginal discharge, nausea/vomiting/diarrhea, constipation, melena/hematochezia, or fever/chills/sweats. She states she has used 3 pads today and denies passing a large blood clots, dizziness, shortness of breath, or chest pain. - Related Data Previous Rx's Medication Instructions Recorded Last Taken Type Vit No.130/Iron/Folic 1 each PO QDAY #30 tablet 03/26/17 07/01/20 Rx [ Tablet] Docusate Sodium [Colace] 100 mg PO BID PRN #60 capsule 07/06/20 Unknown Rx Ferrous Sulfate [Feosol 325 MG tab] 325 mg PO TID #90 tablet 07/06/20 Unknown Rx Ibuprofen [Motrin] 800 mg PO Q8HR PRN #30 tablet 07/06/20 Unknown Rx Simethicone 80 mg PO TID PRN #30 tab.chew 07/06/20 Unknown Rx oxyCODONE /ACETAMINOPHEN [Percocet 1 tab PO Q6HR PRN #30 tablet 07/06/20 Unknown Rx 5/325] Acetaminophen/Codeine [Tylenol 1 tab PO Q6H PRN #6 tab 08/06/20 Unknown Rx /Codeine # 3 tab] Allergies Allergy/AdvReac Type Severity Reaction Status Date / Time No Known Allergies Allergy Verified 12/13/15 14:27 ED Review of Systems ROS: Stated complaint: ABD PAIN/POST Other details as noted in HPI Constitutional: denies: chills, diaphoresis, fever, malaise, weakness Respiratory: denies: cough, shortness of breath Gastrointestinal: abdominal pain. denies: nausea, vomiting, diarrhea, constipation, hematemesis, melena, hematochezia Genitourinary: abnormal menses. denies: urgency, dysuria, frequency, hematuria, discharge Musculoskeletal: denies: joint swelling Skin: denies: change in color Neurological: denies: headache ED Past Medical Hx - Past Medical History Previous Medical History?: Yes Hx Hypertension: No Hx Congestive Heart Failure: No Hx Diabetes: No Hx Deep Vein Thrombosis: No Hx Renal Disease: No Hx Sickle Cell Disease: No Hx Seizures: No Hx Asthma: Yes (LAST ATTACK 3 YEARS AGO) Hx COPD: No Hx HIV: No - Surgical History Past Surgical History?: Yes Additional Surgical History: - Social History Smoking Status: Never Smoker Substance Use Type: None - Medications Home Medications: Home Medications Medication Instructions Recorded Confirmed Last Taken Type Vit No.130/Iron/Folic 1 each PO QDAY #30 tablet 03/26/17 07/04/20 07/01/20 Rx [ Tablet] Docusate Sodium [Colace] 100 mg PO BID PRN #60 capsule 07/06/20 Unknown Rx Ferrous Sulfate [Feosol 325 MG tab] 325 mg PO TID #90 tablet 07/06/20 Unknown Rx Ibuprofen [Motrin] 800 mg PO Q8HR PRN #30 tablet 07/06/20 Unknown Rx Simethicone 80 mg PO TID PRN #30 tab.chew 07/06/20 Unknown Rx oxyCODONE /ACETAMINOPHEN [Percocet 1 tab PO Q6HR PRN #30 tablet 07/06/20 Unknown Rx 5/325] Acetaminophen/Codeine [Tylenol 1 tab PO Q6H PRN #6 tab 08/06/20 Unknown Rx /Codeine # 3 tab] ED Physical Exam - General Limitations: No Limitations General appearance: alert, in no apparent distress - Head Head exam: Present: atraumatic, normocephalic - Eye Eye exam: Present: normal appearance - ENT ENT exam: Present: mucous membranes moist - Neck Neck exam: Present: normal inspection - Respiratory Respiratory exam: Present: normal lung sounds bilaterally. Absent: respiratory distress - Cardiovascular Cardiovascular Exam: Present: regular rate, normal rhythm. Absent: systolic murmur, diastolic murmur, rubs, gallop - GI/Abdominal GI/Abdominal exam: Present: distended (Mild), tenderness (Generalized), normal bowel sounds. Absent: guarding, rebound, rigid, organomegaly, mass - Back Exam Back exam: Present: normal inspection - Neurological Exam Neurological exam: Present: alert, oriented X3, normal gait - Psychiatric Psychiatric exam: Present: normal affect, normal mood - Skin Skin exam: Present: warm, dry, intact, normal color. Absent: rash, cyanosis, diaphoretic, erythema, petechiae, pallor, ecchymosis ED Course Vital Signs 08/05/20 08/05/20 08/06/20 22:46 23:12 04:06 Temperature 98.6 F 98.5 F 97.7 F Pulse Rate 66 105 H 65 Respiratory 12 16 16 Rate Blood Pressure 128/93 124/89 142/97 O2 Sat by Pulse 100 95 100 Oximetry ED Medical Decision Making - Lab Data Result diagrams: 08/05/20 23:40 08/05/20 23:40 Lab Results 08/05/20 08/05/20 08/05/20 Range/Units 23:19 23:40 23:40 WBC 6.4 (4.5-11.0) K/mm3 RBC 4.00 (3.65-5.03) M/mm3 Hgb 11.4 (10.1-14.3) gm/dl Hct 33.7 (30.3-42.9) % MCV 84 (79-97) fl MCH 29 (28-32) pg MCHC 34 (30-34) % RDW 20.0 H (13.2-15.2) % Plt Count 275 (140-440) K/mm3 Lymph % (Auto) 31.0 (13.4-35.0) % [place] % (Auto) 9.7 H (0.0-7.3) % Eos % (Auto) 3.5 (0.0-4.3) % Baso % (Auto) 0.9 (0.0-1.8) % Lymph # (Auto) 2.0 (1.2-5.4) K/mm3 [place] # (Auto) 0.6 (0.0-0.8) K/mm3 Eos # (Auto) 0.2 (0.0-0.4) K/mm3 Baso # (Auto) 0.1 (0.0-0.1) K/mm3 Seg Neutrophils % 54.9 (40.0-70.0) % Seg Neutrophils # 3.5 (1.8-7.7) K/mm3 Sodium 139 (137-145) mmol/L Potassium 4.2 (3.6-5.0) mmol/L Chloride 101.8 (98-107) mmol/L Carbon Dioxide 24 (22-30) mmol/L Anion Gap 17 mmol/L BUN 12 (7-17) mg/dL Creatinine 0.7 (0.6-1.2) mg/dL Estimated GFR > 60 ml/min BUN/Creatinine Ratio 17 % Glucose 111 H (65-100) mg/dL Calcium 9.5 (8.4-10.2) mg/dL Total Bilirubin < 0.20 (0.1-1.2) mg/dL AST 11 (5-40) units/L ALT 7 (7-56) units/L Alkaline Phosphatase 87 (35-129) units/L Total Protein 7.5 (6.3-8.2) g/dL Albumin 4.3 (3.9-5) g/dL Albumin/Globulin Ratio 1.3 % Urine Color Yellow (Yellow) Urine Turbidity Clear (Clear) Urine pH 8.0 H (5.0-7.0) Ur Specific [place] 1.023 (1.003-1.030) Urine Protein <15 mg/dl (Negative) mg/dL Urine Glucose (UA) Neg (Negative) mg/dL Urine Ketones Neg (Negative) mg/dL Urine Blood Neg (Negative) Urine Nitrite Neg (Negative) Urine Bilirubin Neg (Negative) Urine Urobilinogen < 2.0 (<2.0) mg/dL Ur Leukocyte Esterase Neg (Negative) Urine WBC (Auto) 1.0 (0.0-6.0) /HPF Urine RBC (Auto) 1.0 (0.0-6.0) /HPF Urine Mucus Few /HPF - Radiology Data Radiology results: report reviewed CT ABDOMEN and PELVIS 07/05/2020: Lung Bases: Bibasilar atelectasis. The blood pool is much less dense than the myocardium consistent with anemia. Liver: No significant abnormality. Biliary: No significant abnormality. Spleen: No significant abnormality. Pancreas: No significant abnormality. Adrenals: No significant abnormality. Kidneys: No significant abnormality. Lymphatics: No lymphadenopathy. Vasculature: No significant abnormality. Bowel: No obstruction. Pelvis: Large post gravid heterogeneous uterus. There there is an area of hyperdensity in the lower endometrial canal likely related to acute blood products seen on sagittal image 81 of series 602. There is a high area of hypoattenuation in the lower uterine segment related to . Large volume of hemoperitoneum is present which extends from the pelvis to the upper abdomen. Active hemorrhage is not assessed on this examination without IV contrast. Postoperative changes from recent including a small quantity of pneumoperitoneum and gas within the ventral abdomen. Osseous Structures: No aggressive osseous lesion. Additional Findings: None IMPRESSION: 1. Postoperative changes from with large volume of hemoperitoneum extending from the pelvis to the upper abdomen. - Medical Decision Making 35-year-old -[place] female patient presents with complaints of lower abdominal pain and vaginal bleeding x today. She reports that on 07/03/2020 she [address] a [address] Patient had a postop complication of a large hemoperitoneum and an H&H of 5.5. She states she has since been following with Dr. Dawson and recently finished clindamycin yesterday. She states that she also stopped taking ibuprofen and oxycodone due to running out yesterday. She reports that she does have some abdominal swelling, however this is been chronic since her and denies any new changes. She also denies any dysuria/hematuria, vaginal discharge, nausea/vomiting/diarrhea, constipation, melena/hematochezia, or fever/chills/sweats. She states she has used 3 pads today and denies passing a large blood clots, dizziness, shortness of breath, or chest pain. On exam, she has no abdominal distention however she states this is been chronic since her and denies any changes. No rebound or guarding is noted. Hemoglobin is 11.1. White count is normal CBC. UA is normal. Patient's pain appears to be chronic and is likely due to her no longer taking oxycodone and ibuprofen. Recommend patient follows up with her ALARM INSTALLER as scheduled on 08/08/2020-states she is scheduled for a CT scan this day also.. She is well- appearing, her vitals are normal, she stable for discharge home. Critical care attestation.: If time is entered above; I have spent that time in minutes in the direct care of this critically ill patient, excluding procedure time. ED Disposition Clinical Impression: Lower abdominal pain, Vaginal bleeding Disposition: - TO HOME OR SELFCARE Is pt being admited?: No Condition: Stable Instructions: Abdominal Pain (ED) Additional Instructions: Please follow-up with your ALARM INSTALLER as scheduled 08/08/2020 Prescriptions: Acetaminophen/Codeine [Tylenol /Codeine # 3 tab] 1 tab PO Q6H PRN #6 tab PRN Reason: Pain , Severe (7-10) Referrals: PRIMARY CARE, [Primary Care Provider] - 3-5 Days
[2020-08-06] MEDS ORDERED: KETOROLAC 60 MG/2 ML INJ IM ONE (04:28)
== END 2020-08-06 04:56 | disposition home or self-care (01) ==
LOC: ED 22:34
DX: O72.1 Other immediate postpartum hemorrhage (principal); O90.89 Other complications of the puerperium, not elsewhere classified; R10.2 Pelvic and perineal pain; O99.53 Diseases of the respiratory system complicating the puerperium; J45.909 Unspecified asthma, uncomplicated; Z98.890 Other specified postprocedural states; Z79.899 Other long term (current) drug therapy
CPT/HCPCS: 36415; 80053; 81001; 85025; 96372; 99283; J1885

== ENCOUNTER 2020-08-07 16:09 | Emergency (ER) | payer OTHER ==
[2020-08-07 16:28] VITALS: BP 128/83
[2020-08-07] MEDS ORDERED: ACETAMINOPHEN 500 MG TAB PO ONE (19:19)
[2020-08-07 19:38] LABS: Basophils # (Auto) 0.1 K/mm3 (0.0-0.1); Basophils % (Auto) 0.9 % (0.0-1.8); Eosinophils # (Auto) 0.2 K/mm3 (0.0-0.4); Eosinophils % (Auto) 2.6 % (0.0-4.3); Hematocrit 35.3 % (30.3-42.9); Lymphocytes # (Auto) 1.7 K/mm3 (1.2-5.4); Lymphocytes % (Auto) 28.6 % (13.4-35.0); Mean Corpuscular HGB Conc 31 % (30-34); Mean Corpuscular Volume 86 fl (79-97); Monocytes # (Auto) 0.6 K/mm3 (0.0-0.8); Monocytes % (Auto) 10.3 % (0.0-7.3); Platelet Count 276 K/mm3 (140-440); Red Blood Count 4.09 M/mm3 (3.65-5.03)
[2020-08-07 19:45] LABS: Red Cell Distribution Width 20.1 % (13.2-15.2)
[2020-08-07 19:58] LABS: Alanine Aminotransferase 8 units/L (7-56); Albumin 4.4 g/dL (3.9-5); Blood Urea Nitrogen 10 mg/dL (7-17); Calcium 9.7 mg/dL (8.4-10.2); Hemolysis Index 5
[2020-08-07 20:00] LABS: BUN/Creatinine Ratio 17
--- NOTE | 2020-08-07 20:54 | Emergency Department Report ---
ED Abdominal Pain HPI - General Chief Complaint: Abdominal Pain Stated Complaint: ABD PAIN Time Seen by Provider: 08/07/20 19:07 Source: patient Mode of arrival: Ambulatory Limitations: No Limitations - History of Present Illness Initial Comments: This is a 35y/o AAF seen two days ago for abd pain bilat lower x 1 month. Pt states s/p C Section 1 month ago. She denies vaginal bleeding, there is no fever or chills , no n/v, pt is tolerating po intake. She states pain is 4/10 intermittent and described as aching. Pain is exacerbated by palpation and m ovement, pain is relieved by hydrocodone. However is out of hydrocodone. Patient is followed by OBGYN Dr. Dawson, states she had some postop postop bleeding after C Section, states some spotting 2 days ago. She denies menses since C Section. She is not sexually active , she denies bleeding at this time, no dysuria, frequency, urgency, or hematuria. She denies back pain. Severity scale (0 -10): 3 - Related Data Previous Rx's Medication Instructions Recorded Last Taken Type Vit No.130/Iron/Folic 1 each PO QDAY #30 tablet 03/26/17 07/01/20 Rx [ Tablet] Docusate Sodium [Colace] 100 mg PO BID PRN #60 capsule 07/06/20 Unknown Rx Ferrous Sulfate [Feosol 325 MG tab] 325 mg PO TID #90 tablet 07/06/20 Unknown Rx Ibuprofen [Motrin] 800 mg PO Q8HR PRN #30 tablet 07/06/20 Unknown Rx Simethicone 80 mg PO TID PRN #30 tab.chew 07/06/20 Unknown Rx oxyCODONE /ACETAMINOPHEN [Percocet 1 tab PO Q6HR PRN #30 tablet 07/06/20 Unknown Rx 5/325] Acetaminophen/Codeine [Tylenol 1 tab PO Q6H PRN #6 tab 08/06/20 Unknown Rx /Codeine # 3 tab] Acetaminophen [Tylenol] 650 mg PO Q6HR PRN #30 tablet 08/07/20 Unknown Rx cephALEXin [Keflex] 500 mg PO Q12HR 3 Days #6 cap 08/07/20 Unknown Rx Allergies Allergy/AdvReac Type Severity Reaction Status Date / Time No Known Allergies Allergy Verified 12/13/15 14:27 ED Review of Systems ROS: Stated complaint: ABD PAIN Other details as noted in HPI Constitutional: denies: chills, fever Eyes: denies: eye pain, eye discharge, vision change ENT: denies: ear pain, throat pain Respiratory: denies: cough, shortness of breath, wheezing Cardiovascular: denies: chest pain, palpitations Endocrine: no symptoms reported Gastrointestinal: abdominal pain. denies: nausea, vomiting, diarrhea, constipation, melena Genitourinary: denies: urgency, dysuria, frequency, hematuria, discharge Musculoskeletal: denies: back pain, joint swelling, arthralgia Skin: denies: rash, lesions Neurological: denies: headache, weakness, paresthesias Psychiatric: denies: anxiety, depression Hematological/Lymphatic: denies: easy bleeding, easy bruising ED Past Medical Hx - Past Medical History Hx Hypertension: No Hx Congestive Heart Failure: No Hx Diabetes: No Hx Deep Vein Thrombosis: No Hx Renal Disease: No Hx Sickle Cell Disease: No Hx Seizures: No Hx Asthma: Yes (LAST ATTACK 3 YEARS AGO) Hx COPD: No Hx HIV: No - Surgical History Additional Surgical History: x 3 - Social History Smoking Status: Current Every Day Smoker Substance Use Type: None - Medications Home Medications: Home Medications Medication Instructions Recorded Confirmed Last Taken Type Vit No.130/Iron/Folic 1 each PO QDAY #30 tablet 03/26/17 07/04/20 07/01/20 Rx [ Tablet] Docusate Sodium [Colace] 100 mg PO BID PRN #60 capsule 07/06/20 Unknown Rx Ferrous Sulfate [Feosol 325 MG tab] 325 mg PO TID #90 tablet 07/06/20 Unknown Rx Ibuprofen [Motrin] 800 mg PO Q8HR PRN #30 tablet 07/06/20 Unknown Rx Simethicone 80 mg PO TID PRN #30 tab.chew 07/06/20 Unknown Rx oxyCODONE /ACETAMINOPHEN [Percocet 1 tab PO Q6HR PRN #30 tablet 07/06/20 Unknown Rx 5/325] Acetaminophen/Codeine [Tylenol 1 tab PO Q6H PRN #6 tab 08/06/20 Unknown Rx /Codeine # 3 tab] Acetaminophen [Tylenol] 650 mg PO Q6HR PRN #30 tablet 08/07/20 Unknown Rx cephALEXin [Keflex] 500 mg PO Q12HR 3 Days #6 cap 08/07/20 Unknown Rx ED Physical Exam - General Limitations: No Limitations General appearance: alert, in no apparent distress - Head Head exam: Present: atraumatic, normocephalic - Eye Eye exam: Present: normal appearance, EOMI Pupils: Present: normal accommodation - ENT ENT exam: Present: mucous membranes moist - Neck Neck exam: Present: normal inspection. Absent: tenderness - Respiratory Respiratory exam: Present: normal lung sounds bilaterally. Absent: respiratory distress, wheezes, stridor - Cardiovascular Cardiovascular Exam: Present: regular rate, normal rhythm, normal heart sounds. Absent: systolic murmur, diastolic murmur, rubs, gallop - GI/Abdominal GI/Abdominal exam: Present: soft, tenderness (mild bilat lower abd tenderness to deep palpation, no peritineal signs, no rebound, ), normal bowel sounds. Absent: distended, guarding, rebound, rigid, bruit, hernia - Rectal Rectal exam: Present: deferred - Extremities Exam Extremities exam: Present: normal inspection - Back Exam Back exam: Present: normal inspection, full ROM. Absent: tenderness, CVA tenderness (R), CVA tenderness (L) - Neurological Exam Neurological exam: Present: alert, oriented X3, CN II-XII intact, normal gait - Psychiatric Psychiatric exam: Present: normal affect, normal mood - Skin Skin exam: Present: warm, dry, intact, normal color. Absent: rash ED Course Vital Signs 08/07/20 16:27 Temperature 98.1 F Pulse Rate 75 Respiratory 16 Rate Blood Pressure 128/83 O2 Sat by Pulse 100 Oximetry ED Medical Decision Making - Lab Data Result diagrams: 08/07/20 19:22 08/07/20 19:22 Labs 08/07/20 08/07/20 08/07/20 19:22 19:22 Unknown WBC 5.9 RBC 4.09 Hgb 11.0 Hct 35.3 MCV 86 MCH 27 L MCHC 31 RDW 20.1 H Plt Count 276 Lymph % (Auto) 28.6 [place] % (Auto) 10.3 H Eos % (Auto) 2.6 Baso % (Auto) 0.9 Lymph # (Auto) 1.7 [place] # (Auto) 0.6 Eos # (Auto) 0.2 Baso # (Auto) 0.1 Seg Neutrophils % 57.6 Seg Neutrophils # 3.4 Sodium 140 Potassium 4.6 Chloride 103.2 Carbon Dioxide 25 Anion Gap 16 BUN 10 Creatinine 0.6 Estimated GFR > 60 BUN/Creatinine Ratio 17 Glucose 83 Calcium 9.7 Total Bilirubin 0.30 AST 10 ALT 8 Alkaline Phosphatase 82 Total Protein 8.2 Albumin 4.4 Albumin/Globulin Ratio 1.2 Lipase 15 Urine Color Yellow Urine Turbidity Clear Urine pH 6.0 Ur Specific [place] 1.027 Urine Protein 30 mg/dl Urine Glucose (UA) Neg Urine Ketones Neg Urine Blood Sm Urine Nitrite Neg Urine Bilirubin Neg Urine Urobilinogen 2.0 Ur Leukocyte Esterase Tr Urine WBC (Auto) 1.0 Urine RBC (Auto) 2.0 U Epithel Cells (Auto) 8.0 Urine Bacteria (Auto) 1+ Urine Mucus 3+ - Medical Decision Making pt not advises pain is improved, there is no fever or chills, no n/v, no vaginal bleeding or discharge, no back pain, ua: noted for trace leuk, & bacteria, Plan: Keflex , follow up with [employer]LECT[employer]IC [employer]OR CONTROL ASSEMBLER in 2-3 days , pt verbalized agreement and understanding of discharge plan. pt verbalized agreement and understanding of same. Critical care attestation.: If time is entered above; I have spent that time in minutes in the direct care of this critically ill patient, excluding procedure time. ED Disposition Clinical Impression: Abdominal pain Qualifiers: Abdominal location: lower abdomen, unspecified Qualified Code(s): R10.30 - L ower abdominal pain, unspecified Disposition: DC-01 TO HOME OR SELFCARE Is pt being admited?: No Does the pt Need Aspirin: No Condition: Stable Instructions: Abdominal Pain (ED) Prescriptions: Acetaminophen [Tylenol] 650 mg PO Q6HR PRN #30 tablet PRN Reason: Pain cephALEXin [Keflex] 500 mg PO Q12HR 3 Days #6 cap Referrals: TONI DAWSON MD [Staff Physician] - 3-5 Days Forms: Work/School Release Form(ED) Time of Disposition: 21:37
[2020-08-07 21:01] LABS: Bacteria,Urine 1+ /HPF (Negative); Bilirubin,Urine NEG (Negative); Blood,Urine SM (Negative); Color,Urine Yellow (Yellow); Mucus,Urine 3+ /HPF
[2020-08-07 21:31] LABS: HCG Qualitative,Urine Negative (Negative)
== END 2020-08-07 21:46 | disposition home or self-care (01) ==
LOC: ED 16:09
DX: R10.30 Lower abdominal pain, unspecified (principal); J45.909 Unspecified asthma, uncomplicated; Z79.899 Other long term (current) drug therapy; Z98.890 Other specified postprocedural states
CPT/HCPCS: 36415; 80053; 81001; 81025; 83690; 85025; 99283

== ENCOUNTER 2020-09-05 10:58 | Day surgery (SDC) | payer OTHER ==
--- NOTE | 2020-09-05 07:55 | History and Physical Report ---
History of Present Illness Date of examination: 08/29/20 Chief complaint: Retained Products of Conception History of present illness: Pt is a 35 year old s/p repeat section and tubal ligation on 07/03/20 who presents with dysfunctional uterine bleeding and findings of heterog enrous, ill-defined endometrial lining containing air consistent with retained products of conception. She elects surgical management. 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 [employer]SE SUPERVISOR History: chlamydia Family/Genetic History: none Social history: no significant social history - Obstetrical History : 9 Para: 8 Hx # Term Pregnancies: 6 Number of Pregnancies: 2 Spontaneous Abortions: 1 Induced : 0 Number of Living Children: 8 Medications and Allergies Allergies Allergy/AdvReac Type Severity Reaction Status Date / Time No Known Allergies Allergy Verified 09/05/20 07:13 Home Medications Medication Instructions Recorded Confirmed Last Taken Type Sertraline [Zoloft] 50 mg PO QDAY 09/05/20 09/05/20 Unknown History Active Meds: Active Medications Lactated Ringer's (Lactated Ringers) 1,000 mls @ 75 mls/hr IV DIRECT JOCELYN Doxycycline Hyclate 100 mg/ (Sodium Chloride) 250 mls @ 250 mls/hr IV ONCE ONE; Protocol Stop: 09/05/20 08:43 Methylergonovine Maleate (Methergine) 0.2 mg IM ONCE ONE Stop: 09/05/20 07:45 Misoprostol (Cytotec) 800 mcg MI ONCE ONE Stop: 09/05/20 08:01 Review of Systems All systems: negative - Physical Exam Breasts: Positive: deferred Abdomen: Positive: soft, tenderness Extremities: Positive: normal Results All other labs normal. Assessment and Plan A: Retained Products of Conception s/p repeat section on 07/03/20 Asthma P: Proceed with suction dilation and curettage and other indicated procedures
--- NOTE | 2020-09-05 10:53 | Anesthesia Consultation ---
Anesthesia Consult and Med Hx Date of service: 09/05/20 - Airway Anesthetic Teeth Evaluation: Good ROM Head & Neck: Adequate Mental/Hyoid Distance: Adequate Mallampati Class: Class III Intubation Access Assessment: Possibly Difficult - Pulmonary Exam CTA: Yes - Cardiac Exam Cardiac Exam: RRR - Pre-Operative Health Status ASA Pre-Surgery Classification: ASA2 Proposed Anesthetic Plan: General - Pulmonary Hx Smoking: Yes (quit 4 yrs ago) Hx Asthma: Yes (last inhlaer use 2 months ago) Hx Respiratory Symptoms: No - Cardiovascular System Hx Hypertension: No - Central Nervous System CVA: No - Endocrine Hx Renal Disease: No Hx Liver Disease: No Hx Insulin Dependent Diabetes: No Hx Non-Insulin Dependent Diabetes: No Hx Thyroid Disease: No - Hematic Hx Anemia: Yes - Other Systems Hx Obesity: No - Additional Comments Anesthesia Medical History Comments: No hx anesthetic complications. D&C for retained POC.
--- NOTE | 2020-09-05 10:53 | Anesthesia Day of Surgery ---
Anesthesia Day of Surgery - Day of Surgery Patient Examined: Yes Patient H&P Reviewed: Yes Patient is NPO: Yes
[~2020-09-05 10:58] MED LIST: DOXYCYCLINE HYCLATE 100 MG in SODIUM CHLORIDE 0.9% 250ML 250 ML IV ONE; LACTATED RINGERS 1,000 ML IV SCH; METHYLERGONOVINE MALEATE 0.2 MG/ML VIAL IM ONE; MIDAZOLAM 2 MG/2 ML INJ IV NR; SCOPOLAMINE TRANSDERMAL PATCH 72 HR TD NR; miSOPROStol 200 MCG TAB PR ONE
[2020-09-05 11:24] LABS: Amphetamine Screen,Urine Negative; Benzodiazepines Screen,Urine Negative; Cocaine Screen,Urine Negative; Methadone Screen,Urine Negative; Opiate Screen,Urine Negative
[2020-09-05] MEDS ORDERED: METHYLERGONOVINE MALEATE 0.2 MG/ML VIAL IM ONE ×2 (11:28→12:20)
[2020-09-05] MEDS ORDERED: SILVER NITRATE APPLICATOR 1 EA TP ONE (11:28)
[2020-09-05 11:37] LABS: Cannabinoid Screen,Urine Positive
[2020-09-05 11:48] LABS: Basophils % (Auto) 1.1 % (0.0-1.8); Eosinophils # (Auto) 0.1 K/mm3 (0.0-0.4); Eosinophils % (Auto) 2.3 % (0.0-4.3); Hemoglobin 11.8 gm/dl (10.1-14.3); Lymphocytes # (Auto) 1.3 K/mm3 (1.2-5.4); Lymphocytes % (Auto) 40.1 % (13.4-35.0); Mean Corpuscular HGB Conc 34 % (30-34); Mean Corpuscular Volume 83 fl (79-97); Monocytes # (Auto) 0.5 K/mm3 (0.0-0.8); Monocytes % (Auto) 14.2 % (0.0-7.3); Platelet Count 226 K/mm3 (140-440); Red Cell Distribution Width 18.8 % (13.2-15.2)
[2020-09-05] MEDS ORDERED: miSOPROStol 200 MCG TAB ONE (12:21)
[2020-09-05] MEDS ORDERED: SODIUM CHLORIDE 0.9% IRR 1,500 ML BOTTLE IR ONE (12:26)
[2020-09-05] MEDS ORDERED: miSOPROStol 200 MCG TAB VG ONE (12:26)
[2020-09-05] MEDS ORDERED: ONDANSETRON 4 MG/2 ML INJ ONE (12:38)
--- NOTE | 2020-09-05 12:43 | Operative Report ---
Operative Report Operative Report: Date of procedure: September 05, 2020 Preoperative diagnosis: Retained Products of Conception Postoperative diagnosis: Same Procedure: Suction Dilation and Curettage Surgeon: Evi Dawson MD Anesthesia: General Findings: 1) Small mobile antervered uterus which sounded to 8 cm EBL: 50 mL Urine output: 50 mL, clear, prior to procedure Specimens: Products of conception to pathology Drains: None Complications: None. Counts correct x 2 Disposition: Stable to PACU Indication for procedure: Pt is a 35 year old s/p repeat section and tubal ligation on 07/03/20 who presents with dysfunctional uterine bleeding and findings of heterogeneous, ill-defined endometrial lining containing air consistent with retained products of conception. She elects surgical management. Procedure in detail: After the risks, benefits, alternatives and complications were explained to the patient she gave informed consent for the procedure. She was subsequently taken to the operating room with her IV noted to be running well. She was placed in the dorsal supine position and SCDs were noted to be in place and functioning. General anesthesia was then induced without difficulty. She was then placed in the dorsal lithotomy position and prepped and draped in a normal sterile fashion. A timeout was performed. The bladder was emptied yielding 50 mL of clear urine. A bi-valve speculum was placed into the vagina for visualization of the cervix. A single-tooth tenaculum was placed on the anterior lip of the cervix. The uterus was gently sounded to 8 cm. The cervix was serially dilated to a #24 [place] dilator. A number 8 rigid suction curette was used to evacuate the uterine cavity under ultrasound antonio nce. Products of conception were sent to pathology. A dose of Methergine 0.2 mg IM was given to ensure hemostasis. All instruments were then removed from the vagina atraumatically. Misoprostol 800 mg was placed per rectum. At this time, the procedure was ended. The patient was placed into the dorsal supine position and extubated without difficulty. She was then taken to the PACU in stable condition. All counts were correct x 2.
--- NOTE | 2020-09-05 12:46 | Short Stay Summary ---
Short Stay Documentation Date of service: 09/05/20 - History H&P: dictated Social history: no significant social history - Allergies and Medications Current Medications: Allergies No Known Allergies Allergy (Verified 09/05/20 07:13) Home Medications Medication Instructions Recorded Confirmed Last Taken Type Sertraline [Zoloft] 50 mg PO QDAY 09/05/20 09/05/20 Unknown History Active Medications Hydromorphone HCl (Dilaudid) 0.5 mg IV Q10MIN PRN PRN Reason: Pain , Severe (7-10) Stop: 09/05/20 23:00 Lactated Ringer's (Lactated Ringers) 1,000 mls @ 75 mls/hr IV DIRECT JOCELYN Midazolam HCl (Versed) 2 mg IV PREOP NR Stop: 09/05/20 23:59 Scopolamine (Transderm-Scop) 1 each TD PREOP NR Stop: 09/05/20 23:59 - Physical exam Breasts: deferred - Brief post op/procedure progress note Date of procedure: 09/05/20 Pre-op diagnosis: Retained Products of Conception Post-op diagnosis: same Procedure: Suction Dilation and Curettage Anesthesia: GETA Findings: 1) Small mobile antervered uterus which sounded to 8 cm Surgeon: TONI DARLING Estimated blood loss: 50-100ml (50 mL) Pathology: list (products of conception) Specimen disposition: to lab Condition: stable - Hospital course Hospital course: Pt underwent suction dilation and curettage which she tolerated well. She was observed in the PACU until she met discharge criteria. She will follow up in the office in two weeks. - Disposition Condition at discharge: Stable Disposition: DC- TO HOME OR SELFCARE - Discharge Diagnoses (1) Retained products of conception Status: Acute Short Stay Discharge Plan Activity: other (Nothing in vagina, no tub baths for four weeks ) Weight Bearing Status: Full Weight Bearing Diet: regular Follow up with: PRIMARY CARE, [Primary Care Provider] - 7 Days TONI DARLING MD [Staff Physician] - 14 Days (Please call to schedule postop appt ) Prescriptions: Doxycycline Hyclate 100 mg PO BID #14 tablet. Ibuprofen [Motrin 800 MG tab] 800 mg PO Q8HR PRN #30 tablet PRN Reason: Pain, Moderate (4-6) oxyCODONE /ACETAMINOPHEN [Percocet 5/325] 1 tab PO Q6HR PRN #30 tablet PRN Reason: Pain
[2020-09-05] MEDS: HYDROmorphone 1 MG/1 ML INJ IV PRN ×2 (12:59→13:10)
[2020-09-05] MEDS ORDERED: hydrALAZINE 20 MG/1 ML INJ ONE (13:05)
[2020-09-05] MEDS ORDERED: hydrALAZINE 20 MG/1 ML INJ IV PRN (13:12)
[2020-09-05] MEDS ORDERED: oxyCODONE /ACETAMINOPHEN 5-325MG TAB PO PRN (13:15)
[2020-09-05 14:23] VITALS: BP 149/93
--- NOTE | 2020-09-05 15:53 | Ultrasound Report ---
US guide intraoperative INDICATION / CLINICAL INFORMATION: D C guidance TECHNIQUE: Intraoperative sonographic images were obtained during the procedure. FINDINGS: Intraoperative sonographic images for dilation and curettage. See operative/procedure note by performing physician for full details. After the procedure endometria l stripe measured 5 mm and previously measured 17 mm. Ultrasound Images: 4. Signer Name: Dejon Jo MD Signed: 09/05/2020 3:49 PM Workstation Name: [id number]
== END 2020-09-05 14:15 | disposition home or self-care (01) ==
LOC: OR 10:58
PROVIDERS: ATTEND Obstetrics & Gynecology
DX: O02.89 Other abnormal products of conception (principal); D50.0 Iron deficiency anemia secondary to blood loss (chronic); J45.909 Unspecified asthma, uncomplicated; Z79.899 Other long term (current) drug therapy; Z87.891 Personal history of nicotine dependence; Z98.891 History of uterine scar from previous surgery; Z82.49 Family history of ischemic heart disease and other diseases of the circulatory system
CPT/HCPCS: 36415; 59160; 76998; 80307; 85025; 86850; 86900; 86901; 88305; J0360; J1170; J2210; J2250; J2405; J7050; J7120

== ENCOUNTER 2021-02-06 16:45 | Emergency (ER) | payer SELFPAY ==
[2021-02-06 17:14] VITALS: BP 143/95
--- NOTE | 2021-02-06 18:23 | Emergency Department Report ---
ED General Adult HPI - General Chief complaint: Earache Stated complaint: EAR PAIN Time Seen by Provider: 02/06/21 17:25 Source: patient Mode of arrival: Ambulatory Limitations: No Limitations - History of Present Illness Initial comments: 35-year-old -Finnish female patient presents with complaints of right ear pain x2 days. She states there has been some mild drainage from the ear with mild decreased hearing. Patient also reports her left ear is starting to ache today. She denies any fever/chills/sweats, ear trauma, throat pain, or headache. She denies any recent swimming, however admits to submerging herself in the bathtub regularly. Patient rates her pain as a 9/10 in severity and states it has not improved with Aleve - Related Data Home Medications Medication Instructions Recorded Confirmed Last Taken Sertraline [Zoloft] 50 mg PO QDAY 09/05/20 09/05/20 09/04/20 Previous Rx's Medication Instructions Recorded Last Taken Type Doxycycline Hyclate 100 mg PO BID #14 tablet. 09/05/20 Unknown Rx oxyCODONE /ACETAMINOPHEN [Percocet 1 tab PO Q6HR PRN #30 tablet 09/05/20 Unknown Rx 5/325] Acetaminophen/Codeine [Tylenol 1 tab PO Q8H PRN #8 tab 02/06/21 Unknown Rx /Codeine # 3 tab] Ibuprofen [Motrin 800 MG tab] 800 mg PO Q8HR PRN #30 tablet 02/06/21 Unknown Rx Ofloxacin 0.3% [Floxin 0.3% Otic] 10 drops AU QDAY 7 Days #1 bottle 02/06/21 Unknown Rx Allergies Allergy/AdvReac Type Severity Reaction Status Date / Time No Known Allergies Allergy Verified 09/05/20 07:13 ED Review of Systems ROS: Stated complaint: EAR PAIN Other details as noted in HPI Constitutional: denies: chills, diaphoresis, fever, malaise, weakness Eyes: denies: eye pain ENT: ear pain. denies: throat pain Respiratory: denies: cough, shortness of breath Skin: denies: rash, lesions, change in color Hematological/Lymphatic: swollen glands ED Past Medical Hx - Past Medical History Previous Medical History?: Yes Hx Hypertension: No Hx Congestive Heart Failure: No Hx Diabetes: No Hx Deep Vein Thrombosis: No Hx Liver Disease: No Hx Renal Disease: No Hx Asthma: Yes (last inhlaer use 2 months ago) Hx HIV: No - Surgical History Past Surgical History?: Yes Additional Surgical History: x 3 - Social History Smoking Status: Former Smoker - Medications Home Medications: Home Medications Medication Instructions Recorded Confirmed Last Taken Type Doxycycline Hyclate 100 mg PO BID #14 tablet. 09/05/20 Unknown Rx Sertraline [Zoloft] 50 mg PO QDAY 09/05/20 09/05/20 09/04/20 History oxyCODONE /ACETAMINOPHEN [Percocet 1 tab PO Q6HR PRN #30 tablet 09/05/20 Unknown Rx 5/325] Acetaminophen/Codeine [Tylenol 1 tab PO Q8H PRN #8 tab 02/06/21 Unknown Rx /Codeine # 3 tab] Ibuprofen [Motrin 800 MG tab] 800 mg PO Q8HR PRN #30 tablet 02/06/21 Unknown Rx Ofloxacin 0.3% [Floxin 0.3% Otic] 10 drops AU QDAY 7 Days #1 bottle 02/06/21 Unknown Rx ED Physical Exam - General Limitations: No Limitations General appearance: alert, in no apparent distress - Head Head exam: Present: atraumatic, normocephalic - Eye Eye exam: Absent: scleral icterus - Expanded ENT Exam Expanded TM/Canal exam: Canal Discharge: Right TM, Left TM (Right worse than left), Canal Tenderness: Right TM, Left TM Mouth exam: Absent: drooling, trismus, muffled voice Throat exam: Positive: normal inspection - Neck Neck exam: Present: full ROM, lymphadenopathy (Mild post auricular single lymphadenopathy noted). Absent: meningismus - Cardiovascular Cardiovascular Exam: Present: regular rate - Neurological Exam Neurological exam: Present: alert, oriented X3, normal gait - Psychiatric Psychiatric exam: Present: normal affect, normal mood - Skin Skin exam: Present: warm, dry, intact, normal color. Absent: rash ED Course Vital Signs 02/06/21 17:12 Temperature 97 F L Pulse Rate 61 Respiratory 16 Rate Blood Pressure 143/95 [Right] O2 Sat by Pulse 98 Oximetry ED Medical Decision Making - Medical Decision Making 35-year-old -Finnish female patient presents with complaints of right ear pain x2 days. She states there has been some mild drainage from the ear with mild decreased hearing. Patient also reports her left ear is starting to ache today. She denies any fever/chills/sweats, ear trauma, throat pain, or headache. She denies any recent swimming, however admits to submerging herself in the bathtub regularly. Patient rates her pain as a 9/10 in severity and states it has not improved with Aleve Bilateral otitis media, right worse than left noted on exam. Will treat with ofloxacin otic drops. Recommend follow-up with PCP in 3 to 5 days. Discussed signs and symptoms that should prompt immediate return to the emergency department in detail with patient who verbalizes understanding. Patient is well-appearing, her vitals are within normal limits, she is stable for discharge home Critical care attestation.: If time is entered above; I have spent that time in minutes in the direct care of this critically ill patient, excluding procedure time. ED Disposition Clinical Impression: Otitis externa of both ears Qualifiers: Otitis externa type: swimmer's ear Chronicity: acute Qualified Code(s): H60.333 - Swimmer's ear, bilateral Disposition: TO HOME OR SELFCARE Is pt being admited?: No Condition: Stable Instructions: Otitis Externa Prescriptions: Ofloxacin 0.3% [Floxin 0.3% Otic] 10 drops AU QDAY 7 Days #1 bottle Ibuprofen [Motrin 800 MG tab] 800 mg PO Q8HR PRN #30 tablet PRN Reason: Pain, Moderate (4-6) Acetaminophen/Codeine [Tylenol /Codeine # 3 tab] 1 tab PO Q8H PRN #8 tab PRN Reason: Pain , Severe (7-10) Referrals: [facility] [Provider Group] - 3-5 Days Forms: Work/School Release Form(ED)
== END 2021-02-06 19:05 | disposition home or self-care (01) ==
LOC: ED 16:45
DX: H60.333 Swimmer's ear, bilateral (principal); J45.909 Unspecified asthma, uncomplicated; Z87.891 Personal history of nicotine dependence; Z79.899 Other long term (current) drug therapy; Z98.890 Other specified postprocedural states
CPT/HCPCS: 99281

== ENCOUNTER 2021-12-31 16:00 | Emergency (ER) | payer MEDICAID ==
[2021-12-31 18:35] VITALS: BP 139/75
[2021-12-31] MEDS ORDERED: IBUPROFEN 800 MG TAB PO ONE (22:44)
[2021-12-31] MEDS ORDERED: AMOXICILLIN/K CLAV 875/125MG TAB PO ONE (22:44)
--- NOTE | 2021-12-31 22:51 | Emergency Department Report ---
ED General Adult HPI - General Chief complaint: Earache Stated complaint: LEFT EAR PAIN Time Seen by Provider: 12/31/21 22:41 Source: patient Mode of arrival: Ambulatory Limitations: No Limitations - History of Present Illness Initial comments: Patient 36-year-old female who presents for left ear pain and ache x3 days. Patient has history of AOM. Pain rated at 5/10 aching sharp with purulent drainage . Patient denies throat pain there is no dental pain. There is no dizziness or lightheadedness. There is been no fever or chills. No nausea no vomiting. Symptoms exacerbated by movement. Symptoms are relieved by nothing tried. Is been no decrease in hearing. - Related Data Home Medications Medication Instructions Recorded Confirmed Last Taken Sertraline [Zoloft] 50 mg PO QDAY 09/05/20 09/05/20 09/04/20 Previous Rx's Medication Instructions Recorded Last Taken Type Doxycycline Hyclate 100 mg PO BID #14 tablet. 09/05/20 Unknown Rx oxyCODONE /ACETAMINOPHEN [Percocet 1 tab PO Q6HR PRN #30 tablet 09/05/20 Unknown Rx 5/325] Acetaminophen/Codeine [Tylenol 1 tab PO Q8H PRN #8 tab 02/06/21 Unknown Rx /Codeine # 3 tab] Ibuprofen [Motrin 800 MG tab] 800 mg PO Q8HR PRN #30 tablet 02/06/21 Unknown Rx Ofloxacin 0.3% [Floxin 0.3% Otic] 10 drops AU QDAY 7 Days #1 bottle 02/06/21 Unknown Rx Amoxicillin/Potassium Clav 1 each PO BID 7 Days #14 12/31/21 Unknown Rx [Augmentin 875-125 Tablet] Ciprofloxacin HCl/Dexameth 4 drop BID 7 Days #7.5 ml 12/31/21 Unknown Rx [Ciprodex Otic Suspension] Ibuprofen [Motrin 800 MG tab] 800 mg PO Q8HR PRN #30 tablet 12/31/21 Unknown Rx Allergies Allergy/AdvReac Type Severity Reaction Status Date / Time No Known Allergies Allergy Verified 09/05/20 07:13 ED Review of Systems ROS: Stated complaint: LEFT EAR PAIN Other details as noted in HPI Constitutional: denies: chills, fever Eyes: denies: eye pain, eye discharge, vision change ENT: ear pain. denies: throat pain, dental pain, epistaxis, congestion Respiratory: denies: cough, shortness of breath, wheezing Cardiovascular: denies: chest pain, palpitations Endocrine: no symptoms reported Gastrointestinal: denies: abdominal pain, nausea, vomiting, diarrhea Genitourinary: denies: urgency, dysuria, discharge Musculoskeletal: denies: back pain, joint swelling, arthralgia Skin: denies: rash, lesions Neurological: denies: headache, numbness, paresthesias, confusion, vertigo Psychiatric: denies: anxiety, depression Hematological/Lymphatic: denies: easy bleeding, easy bruising ED Past Medical Hx - Past Medical History Hx Hypertension: No Hx Congestive Heart Failure: No Hx Diabetes: No Hx Deep Vein Thrombosis: No Hx Liver Disease: No Hx Renal Disease: No Hx Asthma: Yes (last inhlaer use 2 months ago) Hx HIV: No - Surgical History Additional Surgical History: x 3 - Social History Smoking Status: Former Smoker - Medications Home Medications: Home Medications Medication Instructions Recorded Confirmed Last Taken Type Doxycycline Hyclate 100 mg PO BID #14 tablet. 09/05/20 Unknown Rx Sertraline [Zoloft] 50 mg PO QDAY 09/05/20 09/05/20 09/04/20 History oxyCODONE /ACETAMINOPHEN [Percocet 1 tab PO Q6HR PRN #30 tablet 09/05/20 Unknown Rx 5/325] Acetaminophen/Codeine [Tylenol 1 tab PO Q8H PRN #8 tab 02/06/21 Unknown Rx /Codeine # 3 tab] Ibuprofen [Motrin 800 MG tab] 800 mg PO Q8HR PRN #30 tablet 02/06/21 Unknown Rx Ofloxacin 0.3% [Floxin 0.3% Otic] 10 drops AU QDAY 7 Days #1 bottle 02/06/21 Unknown Rx Amoxicillin/Potassium Clav 1 each PO BID 7 Days #14 12/31/21 Unknown Rx [Augmentin 875-125 Tablet] Ciprofloxacin HCl/Dexameth 4 drop BID 7 Days #7.5 ml 12/31/21 Unknown Rx [Ciprodex Otic Suspension] Ibuprofen [Motrin 800 MG tab] 800 mg PO Q8HR PRN #30 tablet 12/31/21 Unknown Rx ED Physical Exam - General Limitations: No Limitations General appearance: alert, in no apparent distress - Head Head exam: Present: normocephalic, normal inspection - Eye Eye exam: Present: PERRL, EOMI. Absent: conjunctival injection, nystagmus Pupils: Present: normal accommodation - ENT ENT exam: Present: normal exam, normal orophraynx, mucous membranes moist. Absent: normal external ear exam - Expanded ENT Exam Expanded TM/Canal exam: Erythema: Left TM, Bulging: Left TM, Effusion: Left TM, Canal Tenderness: Left TM Mouth exam: Absent: trismus Throat exam: Negative: tonsillar erythema, tonsillomegaly, tonsillar exudate, R peritonsillar mass, L peritonsillar mass - Neck Neck exam: Present: normal inspection, full ROM, lymphadenopathy (Left anterior auricle). Absent: tenderness, thyromegaly - Respiratory Respiratory exam: Present: normal lung sounds bilaterally. Absent: wheezes, stridor, chest wall tenderness - Cardiovascular Cardiovascular Exam: Present: regular rate, normal rhythm, normal heart sounds. Absent: systolic murmur, diastolic murmur, rubs, gallop - GI/Abdominal GI/Abdominal exam: Present: soft, normal bowel sounds. Absent: distended, tenderness - Rectal Rectal exam: Present: deferred - Extremities Exam Extremities exam: Present: normal inspection, full ROM. Absent: tenderness - Back Exam Back exam: Present: normal inspection, full ROM. Absent: CVA tenderness (R), CVA tenderness (L) - Neurological Exam Neurological exam: Present: alert, oriented X3, CN II-XII intact, normal gait - Expanded Neurological Exam Expanded Patient oriented to: Present: person, place, time Speech: Present: fluid speech Best Eye Response (Amalia): (4) open spontaneously Best Motor Response (Amalia): (6) obeys commands Best Verbal Response (Amalia): (5) oriented Amalia Total: 15 - Psychiatric Psychiatric exam: Present: normal affect - Skin Skin exam: Present: warm, dry, intact, normal color. Absent: rash ED Course Vital Signs 12/31/21 18:32 Temperature 98.0 F Pulse Rate 58 L Respiratory 18 Rate Blood Pressure 139/75 O2 Sat by Pulse 100 Oximetry ED Medical Decision Making - Medical Decision Making This is straightforward AOM OE, plan Augmentin, Ciprodex, Profen as needed pain. Follow-up with ENT in 2 to 3 days. Return to emergency department should symptoms worsen. Patient verbalized agreement understanding with discharge plan. Patient DC'd home in stable condition at this time. Critical care attestation.: If time is entered above; I have spent that time in minutes in the direct care of this critically ill patient, excluding procedure time. ED Disposition Clinical Impression: AOM (acute otitis media) Qualifiers: Otitis media type: serous Laterality: left Recurrence: recurrent Qualified Code(s): H65.05 - Acute serous otitis media, recurrent, left ear Otitis externa Qualifiers: Otitis externa type: unspecified type Chronicity: acute Laterality: left Qualified Code(s): H60.502 - Unspecified acute noninfective otitis externa, left ear Disposition: HOME / SELF CARE / HOMELESS Is pt being admited?: No Does the pt Need Aspirin: No Condition: Stable Instructions: Ear Drops, Adult, Otitis Media, Adult, [id number] Additional Instructions: Take medications as prescribed, follow-up with ENT in 2 to 3 days. Return to emergency department should symptoms worsen. Prescriptions: Amoxicillin/Potassium Clav [Augmentin 875-125 Tablet] 1 each PO BID 7 Days #14 Ciprofloxacin HCl/Dexameth [Ciprodex Otic Suspension] 4 drop BID 7 Days #7.5 ml Ibuprofen [Motrin 800 MG tab] 800 mg PO Q8HR PRN #30 tablet PRN Reason: pain fever Referrals: TEAGAN ARENAS MD [Staff Physician] - 3-[address] [facility] [Provider Group] - 3-5 Days Forms: Work/School Release Form(ED) Time of Disposition: 22:55
== END 2021-12-31 23:45 | disposition home or self-care (01) ==
LOC: ED 16:00
DX: H66.92 Otitis media, unspecified, left ear (principal); H60.92 Unspecified otitis externa, left ear; J45.909 Unspecified asthma, uncomplicated; Z87.891 Personal history of nicotine dependence
CPT/HCPCS: 99282